=== PATIENT | female | born 1965 | race Hispanic/Latino ===

== ENCOUNTER 2018-03-29 03:48 | Inpatient (IN) | payer OTHER ==
[2018-03-29] MEDS ORDERED: Sodium Chloride 0.9% 1,000 ML IV STA (04:13)
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
[2018-03-29] MEDS ORDERED: Sodium Chloride 0.9% 1,000 ML IV SCH (04:30)
[2018-03-29] MEDS ORDERED: Iohexol 350 MG/100 ML VIAL ONE (05:11)
[2018-03-29 05:25] LABS: BASO # 0.02 K/mm3 (0.0-2.0); BASO % 0.4 % (0.0-3.0); EOS % 0.2 % (1.5-5.0); GRAN # 3.72 (1.4-6.5); GRAN % 71.9 % (50.0-68.0); HEMOGLOBIN 14.6 g/dL (12.0-16.0); LYMPH # 1.2 (1.2-3.4); LYMPH % 23.2 % (22.0-35.0); MEAN CELL VOLUME 87.6 fl (80.0-105.0); MEAN CORPUSCULAR HEMOGLOBIN 31.8 pg (25.0-35.0); MEAN CORPUSCULAR HGB CONC 36.3 g/dl (31.0-37.0); MEAN PLATELET VOLUME 10.5 fl (7.0-11.0); MONO # 0.2 (0.1-0.6); MONO % 4.3 % (1.0-6.0); RBC 4.59 10^6/uL (3.5-6.1); RED CELL DISTRIBUTION WIDTH 12.5 % (11.5-14.5); WHITE BLOOD COUNT 5.2 10^3/ul (4.5-11.0)
[2018-03-29 05:26] LABS: INR 0.97 (0.93-1.08); PARTIAL THROMBOPLASTIN TIME 28.2 Seconds (25.1-36.5); PROTHROMBIN TIME 11.1 SECONDS (9.4-12.5)
[2018-03-29 05:32] LABS: AST/SGOT 48 U/L (14-36)
[2018-03-29 05:37] LABS: ALB/GLOB RATIO 1.3 (1.1-1.8); ALBUMIN 4.3 g/dL (3.0-4.8); ALT/SGPT 54 U/L (7-56); AMYLASE 76 U/L (35-125); BLOOD UREA NITROGEN 13 mg/dL (7-21); CALCIUM 9.9 mg/dL (8.4-10.5); GFR AFRICAN-AMERICAN > 60; GFR NON-AFRICAN AMERICAN > 60; LIPASE 94 U/L (23-300)
[2018-03-29 05:45] LABS: TROPONIN I < 0.01 ng/mL
[2018-03-29] MEDS ORDERED: Morphine 2 mg/ml ISec IVP STA (06:10)
[2018-03-29 07:10] LABS: URINE BILIRUBIN NEGATIVE (NEGATIVE); URINE BLOOD NEGATIVE (NEGATIVE); URINE GLUCOSE (UA) NEGATIVE (NEGATIVE); URINE LEUKOCYTE ESTERASE NEGATIVE Leu/uL (NEGATIVE); URINE PROTEIN NEGATIVE mg/dL (<30 mg/dL); URINE UROBILINOGEN 0.2 E.U./dL (<1 E.U./dL)
[2018-03-29 07:22] LABS: URINE APPEARANCE CLEAR (CLEAR); URINE COLOR YELLOW (YELLOW)
--- NOTE | 2018-03-29 07:28 | CT ---
EXAM: CT Abdomen and Pelvis With Intravenous Contrast CLINICAL HISTORY: 53 years old, female; Pain; Abdominal pain; Additional info: Abd pain TECHNIQUE: Axial computed tomography images of the abdomen and pelvis with intravenous contrast. All CT scans at this facility use one or more dose reduction techniques, viz.: automated exposure control; ma/kV adjustment per patient size (including targeted exams where dose is matched to indication; i.e. head); or iterative reconstruction technique. Coronal and sagittal reformatted images were created and reviewed. CONTRAST: 96 mL of OMNI 350 administered intravenously. COMPARISON: CT - ABD PELVIS W/O PO OR IV CONT 2015-12-04 10:38 FINDINGS: Lung bases: Unremarkable. No mass. No consolidation. ABDOMEN: Liver: Unremarkable. No mass. Gallbladder and bile ducts: There has been a cholecystectomy. No ductal dilation. Pancreas: Unremarkable. No mass. No ductal dilation. Spleen: Unremarkable. No splenomegaly. Adrenals: 1.3 cm right adrenal nodule. The left adrenal gland is normal. Kidneys and ureters: Unremarkable. No solid mass. No hydronephrosis. Stomach and bowel: Mild diverticulosis is present in the sigmoid and descending colon. The sigmoid colon is mildly thickwalled which could be secondary to mild colitis the. No obstruction. PELVIS: Appendix: No appendix is specifically identified. There is no evidence of fluid collections or inflammatory stranding in the right lower quadrant. Bladder: Unremarkable. No mass. Reproductive: Unremarkable as visualized. ABDOMEN and PELVIS: Intraperitoneal space: Unremarkable. No free air. No significant fluid collection. Bones/joints: No acute fracture. No dislocation. Soft tissues: Unremarkable. Vasculature: Unremarkable. No abdominal aortic aneurysm. Lymph nodes: Unremarkable. No enlarged lymph nodes. IMPRESSION: Possible mild sigmoid colitis. Diverticulosis.
--- NOTE | 2018-03-29 07:30 | ED PDOC ---
Physical Exam Vital Signs Temp Pulse Resp BP Pulse Ox 03/29/18 07:35 98.4 F 94 H 18 127/88 100 03/29/18 07:09 85 17 154/84 H 100 03/29/18 04:02 99.8 F H 91 H 17 141/109 H 99 Medical Decision Making ED Course and Treatment: 03/29/18 07:00 Case signed out to me by Dr. Hinojosa. Patient is a 53 year old female, whose past medical history includes uterine fibroids, anemia, fibromyalgia, and depression, who presents to the Emergency department complaining of recurrent vomiting, associated with diarrhea and abdominal pain since 4 days. Currently pending abdominal CT scan. 03/29/18 07:30 CT abdominal and pelvis: Creator : CAROLYNE WHITLEY FINDINGS: Lung bases: Unremarkable. No mass. No consolidation. ABDOMEN: Liver: Unremarkable. No mass. Gallbladder and bile ducts: There has been a cholecystectomy. No ductal dilation. Pancreas: Unremarkable. No mass. No ductal dilation. Spleen: Unremarkable. No splenomegaly. Adrenals: 1.3 cm right adrenal nodule. The left adrenal gland is normal. Kidneys and ureters: Unremarkable. No solid mass. No hydronephrosis. Stomach and bowel: Mild diverticulosis is present in the sigmoid and descending colon. The sigmoid colon is mildly thickwalled which could be secondary to mild colitis the. No obstruction. PELVIS: Appendix: No appendix is specifically identified. There is no evidence of fluid collections or inflammatory stranding in the right lower quadrant. Bladder: Unremarkable. No mass. Reproductive: Unremarkable as visualized. ABDOMEN and PELVIS: Intraperitoneal space: Unremarkable. No free air. No significant fluid collection. Bones/joints: No acute fracture. No dislocation. Soft tissues: Unremarkable. Vasculature: Unremarkable. No abdominal aortic aneurysm. Lymph nodes: Unremarkable. No enlarged lymph nodes. IMPRESSION: Possible mild sigmoid colitis. Diverticulosis. 03/29/18 08:01 Zofran was ordered due to patient's nausea. 03/29/18 08:[address] Lindo, who is aware of plan and agrees for patient admission. 03/29/18 09:20 Patient reports feeling sore, but better. - Lab Interpretations Lab Results: 03/29/18 04:20 03/29/18 04:30 Lab Results 03/29/18 06:00: Urine Color Yellow, Urine Appearance Clear, Urine pH 6.0, Ur Specific [place] <= 1.005, Urine Protein Negative, Urine Glucose (UA) Negative, Urine Ketones Negative, Urine Blood Negative, Urine Nitrate Negative, Urine Bilirubin Negative, Urine Urobilinogen 0.2, Ur Leukocyte Esterase Negative 03/29/18 04:30: Sodium 147, Potassium 4.0, Chloride 107, Carbon Dioxide 28, Anion Gap 16, BUN 13, Creatinine 0.6 L, Est GFR ( Amer) > 60, Est GFR ( Non-Af Amer) > 60, Random Glucose 112 H, Calcium 9.9, Total Bilirubin 0.8, AST 48 H, ALT 54, Alkaline Phosphatase 53, Lactate Dehydrogenase 431, Total Creatine Kinase 24 L, Troponin I < 0.01, Total Protein 7.6, Albumin 4.3, Globulin 3.3, Albumin/Globulin Ratio 1.3, Amylase 76, Lipase 94 03/29/18 04:30: PT 11.1, INR 0.97, APTT 28.2 03/29/18 04:20: WBC 5.2 D, RBC 4.59, Hgb 14.6, Hct 40.2, MCV 87.6, MCH 31.8, MCHC 36.3, RDW 12.5, Plt Count 216, MPV 10.5, Gran % 71.9 H, Lymph % (Auto) 23.2 , [place] % (Auto) 4.3, Eos % (Auto) 0.2 L, Baso % (Auto) 0.4, Gran # 3.72, Lymph # (Auto) 1.2, [place] # (Auto) 0.2, Eos # (Auto) 0.0, Baso # (Auto) 0.02 - RAD Interpretation Radiology Orders: 03/29/18 04:51 ABD & PELVIS IV CONTRAST ONLY [CT] Stat Automated Weaver: Radiologist - Medication Orders Current Medication Orders: Sodium Chloride (Sodium Chloride 0.45%) 1,000 mls @ 125 mls/hr IV .Q8H YUMIKO Cefoxitin Sodium 1 gm/ Sodium (Chloride) 100 mls @ 100 mls/hr IV ONCE ONE PRN Reason: Protocol Stop: 03/29/18 09:53 Discontinued Medications Sodium Chloride (Sodium Chloride 0.9%) 1,000 mls @ 100 mls/hr IV .Q10H STA Stop: 03/29/18 14:12 Last Admin: 03/29/18 04:49 Dose: 100 mls/hr eMAR Start Stop Document 03/29/18 04:49 IT (Rec: 03/29/18 04:49 IT [facility] [id number]) Intravenous Solution Start Date 03/29/18 Start Time 04:49 Ketorolac Tromethamine (Toradol) 15 mg IVP ONCE ONE Stop: 03/29/18 06:12 Last Admin: 03/29/18 06:16 Dose: 15 mg MAR Pain Assessment Document 03/29/18 06:16 IT (Rec: 03/29/18 06:16 IT [facility] [id number]) Pain Reassessment Is this a pain reassessment? No Sleep Is patient sleeping during reassessment? No Presence of Pain Presence of Pain No Pain Scale Used Pain Scale Used Numeric IVP Administration Document 03/29/18 06:16 IT (Rec: 03/29/18 06:16 IT [facility] [id number]) Charges for Administration # of IVP Administrations 1 Ondansetron HCl (Zofran Inj) 4 mg IVP STAT STA Stop: 03/29/18 04:14 Last Admin: 03/29/18 04:50 Dose: 4 mg IVP Administration Document 03/29/18 04:50 IT (Rec: 03/29/18 04:50 IT [facility] [id number]) Charges for Administration # of IVP Administrations 1 Ondansetron HCl (Zofran Inj) 4 mg IVP STAT STA Stop: 03/29/18 08:02 Last Admin: 03/29/18 08:33 Dose: 4 mg IVP Administration Document 03/29/18 08:33 [email or web address] (Rec: 03/29/18 08:33 [email or web address] [id number]) Charges for Administration # of IVP Administrations 1 Pantoprazole Sodium (Protonix Inj) 40 mg IVP ONCE STA Stop: 03/29/18 04:18 Last Admin: 03/29/18 04:49 Dose: 40 mg IVP Administration Document 03/29/18 04:49 IT (Rec: 03/29/18 04:50 IT [facility] [id number]) Charges for Administration # of IVP Administrations 1 - Scribe Statement The provider has reviewed the documentation as recorded by the [place] Romero Provider Scribe Attestation: All medical record entries made by the Scribe were at my direction and personally dictated by me. I have reviewed the chart and agree that the record accurately reflects my personal performance of the history, physical exam, medical decision making, and the department course for this patient. I have also personally directed, reviewed, and agree with the discharge instructions and disposition. Disposition/Present on Arrival - Present on Arrival Any Indicators Present on Arrival: Yes History of DVT/PE: No History of Uncontrolled Diabetes: No Urinary Catheter: No History of Decub. Ulcer: No History Surgical Site Infection Following: None - Disposition Have Diagnosis and Disposition been Completed?: Yes Diagnosis: Gastroenteritis, Colitis Disposition: HOSPITALIZED Disposition Time: 14:00 Patient Plan: Admission Patient Problems: Current Active Problems Problem Status Onset Colitis Acute Gastroenteritis Acute Condition: GOOD
[2018-03-29] MEDS ORDERED: Ciprofloxacin 400mg/200ml D5W 400 MG/200 ML BAG IVPB STA (08:32)
[2018-03-29] MEDS ORDERED: metroNIDAZOLE IV 500 mg/100 ml 500 MG/100 ML BAG IVPB STA (08:34)
[2018-03-29] MEDS ORDERED: Sodium Chloride 0.45% 1,000 ML IV SCH (08:45)
[2018-03-29] MEDS ORDERED: cefOXitin 1 GM in Sodium Chloride 0.9% 100 ML IV ONE (08:54)
--- NOTE | 2018-03-29 11:31 | CARD ---
APPROVED REPORT EKG Measurement Heart [id number] <Conclusion> Normal sinus rhythm. Non Specific ST_T Changes. Normal ECG
[2018-03-29] MEDS ORDERED: Morphine 2 mg/ml ISec IM PRN (11:45)
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
[2018-03-29] MEDS: cefTRIAXone 1 gm 1 GM/100 ML BAG IVPB SCH (13:12)
[2018-03-29] MEDS: Sodium Chloride 0.45% 1,000 ML IV SCH (13:13)
[2018-03-29] MEDS ORDERED: Pneumococcal 23-Valent Vaccine IM ONE (13:58)
[2018-03-29] MEDS: metroNIDAZOLE IV 500 mg/100 ml 500 MG/100 ML BAG IVPB SCH ×2 (15:21→21:08)
[2018-03-30] MEDS: Sodium Chloride 0.45% 1,000 ML IV SCH ×4 (01:24→21:06)
[2018-03-30] MEDS: metroNIDAZOLE IV 500 mg/100 ml 500 MG/100 ML BAG IVPB SCH ×3 (05:30→21:08)
--- NOTE | 2018-03-30 07:00 | CP.PCM.PN ---
<Srathak Richard - Last Filed: 03/30/18 11:10> Subjective - Date & Time of Evaluation Date of Evaluation: 03/30/18 Time of Evaluation: 06:00 - Subjective Subjective: Patient seen and evaluated bedside. no acute issues overnight. Patient state she had diarrhea this morning, also complaining of nausea and abdominal pain. Denies chest pain, shortness of breath, fever, chills or other complaints. Objective - Vital Signs/Intake and Output Vital Signs (last 24 hours): Temp Pulse Resp BP Pulse Ox 98.2 F 50 L 16 139/74 100 03/29/18 23:12 03/29/18 23:12 03/29/18 23:12 03/29/18 23:12 03/29/18 23:12 - Medications Medications: Current Medications Clonazepam (Klonopin) 1 mg PO BID PRN PRN Reason: Anxiety Last Admin: 03/29/18 21:10 Dose: 1 mg Heparin Sodium (Porcine) (Heparin) 5,000 units SC Q8 [facility] PRN Reason: Protocol Last Admin: 03/30/18 05:29 Dose: 5,000 units Metronidazole (Flagyl) 500 mg in 100 mls @ 100 mls/hr IVPB Q8 [facility] PRN Reason: Protocol Last Admin: 03/30/18 05:30 Dose: 100 mls/hr Ceftriaxone Sodium (Rocephin 1 Gram Ivpb) 1 gm in 100 mls @ 100 mls/hr IVPB DAILY [facility] PRN Reason: Protocol Last Admin: 03/29/18 13:12 Dose: 100 mls/hr Sodium Chloride (Sodium Chloride 0.45%) 1,000 mls @ 100 mls/hr IV .Q10H [facility] Last Admin: 03/30/18 03:35 Dose: 100 mls/hr Ibuprofen (Motrin Tab) 400 mg PO Q6H PRN PRN Reason: Pain, moderate (4-7) Last Admin: 03/29/18 20:04 Dose: 400 mg Ketorolac Tromethamine (Toradol) 15 mg IVP Q4 PRN PRN Reason: Pain, severe (8-10) Last Admin: 03/30/18 06:17 Dose: 15 mg Nicotine (Nicoderm Cq) 1 patch TD DAILY [facility] Last Admin: 03/30/18 04:52 Dose: 1 patch Ondansetron HCl (Zofran Inj) 4 mg IVP Q6H PRN PRN Reason: Nausea/Vomiting Last Admin: 03/30/18 03:09 Dose: 4 mg Pantoprazole Sodium (Protonix Inj) 40 mg IVP DAILY [facility] - Labs Labs: PT 11.1 SECONDS (9.4-12.5) 03/29/18 04:30 INR 0.97 (0.93-1.08) 03/29/18 04:30 APTT 28.2 Seconds (25.1-36.5) 03/29/18 04:30 - Constitutional Appears: Non-toxic, No Acute Distress - Head Exam Head Exam: ATRAUMATIC, NORMAL INSPECTION, NORMOCEPHALIC - Eye Exam Eye Exam: Normal appearance - ENT Exam ENT Exam: Mucous Membranes Moist - Respiratory Exam Respiratory Exam: Clear to Ausculation Bilateral, NORMAL BREATHING PATTERN - Cardiovascular Exam Cardiovascular Exam: REGULAR RHYTHM, +S1, +S2 - GI/Abdominal Exam GI & Abdominal Exam: Soft, Tenderness - Neurological Exam Neurological Exam: Alert, Awake, Oriented x3 Assessment and Plan - Assessment and Plan (Free Text) Assessment: Anh Khoury, 53F, with active smoker with former methadone use, PMHx uterine fibroids with menorrhagia requiring blood transfusion, chronic pain/ sciatic/fibromyalgia on chronic oxycodone, and anxiety on klonopin TID, came in for abdominal pain, nausea, vomiting, diarrhea x [address] A/P showed mild sigmoid colitis with diverticulosis. Plan: Abdominal pain, generalized Intractable Nausea and vomiting Diarrhea Likely mild sigmoid colitis vs opioid withdrawal - full liquid diet - Toradol PRN; avoid opioid - 1/2 NS@100 - Zofran PRN - protonix IV - Ceftriaxone and flagyl - GI consulted, follow recs - blood culture pending - stool cultures and c diff pending Active smoker - nicoderm - counselled on smoking cessation Hx methadone use - UDS positive for opiates PVX - protonix, heparin SC <Jakob Guerrero - Last Filed: 03/30/18 12:21> Objective - Vital Signs/Intake and Output Vital Signs (last 24 hours): Temp Pulse Resp BP Pulse Ox 98.6 F 64 20 132/77 99 03/30/18 08:28 03/30/18 08:28 03/30/18 08:28 03/30/18 08:28 03/30/18 08:28 - Medications Medications: Current Medications Clonazepam (Klonopin) 1 mg PO BID PRN PRN Reason: Anxiety Last Admin: 03/30/18 09:29 Dose: 1 mg Heparin Sodium (Porcine) (Heparin) 5,000 units SC Q8 [facility] PRN Reason: Protocol Last Admin: 03/30/18 05:29 Dose: 5,000 units Metronidazole (Flagyl) 500 mg in 100 mls @ 100 mls/hr IVPB Q8 [facility] PRN Reason: Protocol Last Admin: 03/30/18 05:30 Dose: 100 mls/hr Ceftriaxone Sodium (Rocephin 1 Gram Ivpb) 1 gm in 100 mls @ 100 mls/hr IVPB DAILY [facility] PRN Reason: Protocol Last Admin: 03/30/18 09:28 Dose: 100 mls/hr Sodium Chloride (Sodium Chloride 0.45%) 1,000 mls @ 100 mls/hr IV .Q10H [facility] Last Admin: 03/30/18 09:31 Dose: 100 mls/hr Ibuprofen (Motrin Tab) 400 mg PO Q6H PRN PRN Reason: Pain, moderate (4-7) Last Admin: 03/29/18 20:04 Dose: 400 mg Ketorolac Tromethamine (Toradol) 15 mg IVP Q4 PRN PRN Reason: Pain, severe (8-10) Last Admin: 03/30/18 10:17 Dose: 15 mg Nicotine (Nicoderm Cq) 1 patch TD DAILY [facility] Last Admin: 03/30/18 09:30 Dose: Not Given Ondansetron HCl (Zofran Inj) 4 mg IVP Q4H PRN PRN Reason: Nausea/Vomiting Pantoprazole Sodium (Protonix Inj) 40 mg IVP DAILY [facility] Last Admin: 03/30/18 09:30 Dose: 40 mg - Labs Labs: 03/30/18 06:45 03/30/18 06:45 PT 11.1 SECONDS (9.4-12.5) 03/29/18 04:30 INR 0.97 (0.93-1.08) 03/29/18 04:30 APTT 28.2 Seconds (25.1-36.5) 03/29/18 04:30 Attending/Attestation - Attestation I have personally seen and examined this patient.: Yes I have fully participated in the care of the patient.: Yes I have reviewed all pertinent clinical information, including history, physical exam and plan: Yes Notes (Text): 03/30/18 12:18 53 year old female with past medical history of chronic pain on opiates, fibromyalgia and anxiety who presented with intractable nausea, vomiting, diarrhea and abdominal pain. CT abd/pelvis showed mild sigmoid colitis with diverticulosis. She was started on iv fluids, analgesics and antibiotics. GI evaluation was appreciated. Today she still complains of loose stools and nausea/vomiting, unable to tolerate po. Will scale diet back to liquids or NPO for now. GI follow up requested. Stool studies still pending. She was counselled on smoking cessation. Jakob Guerrero MD Hospitalist.
[2018-03-30 07:21] LABS: BASO # 0.02 K/mm3 (0.0-2.0); BASO % 0.4 % (0.0-3.0); GRAN # 2.67 (1.4-6.5); GRAN % 57.7 % (50.0-68.0); LYMPH # 1.6 (1.2-3.4); LYMPH % 35.4 % (22.0-35.0); MEAN CELL VOLUME 88.3 fl (80.0-105.0); MEAN CORPUSCULAR HEMOGLOBIN 31.1 pg (25.0-35.0); MEAN CORPUSCULAR HGB CONC 35.3 g/dl (31.0-37.0); MEAN PLATELET VOLUME 10.3 fl (7.0-11.0); MONO # 0.3 (0.1-0.6); MONO % 6.5 % (1.0-6.0); RBC 3.92 10^6/uL (3.5-6.1); RED CELL DISTRIBUTION WIDTH 12.6 % (11.5-14.5); WHITE BLOOD COUNT 4.6 10^3/ul (4.5-11.0)
[2018-03-30 07:23] LABS: HEMOGLOBIN 12.2 g/dL (12.0-16.0)
[2018-03-30 07:41] LABS: ALB/GLOB RATIO 1.3 (1.1-1.8); ALBUMIN 3.5 g/dL (3.0-4.8); ALT/SGPT 56 U/L (7-56); AST/SGOT 60 U/L (14-36); BLOOD UREA NITROGEN 13 mg/dL (7-21); CALCIUM 8.9 mg/dL (8.4-10.5); GFR AFRICAN-AMERICAN > 60; GFR NON-AFRICAN AMERICAN > 60
[2018-03-30 09:19] LABS: BARBITURATES, UR NEGATIVE (NEGATIVE); BENZODIAZEPINES, UR NEGATIVE (NEGATIVE); OPIATES, UR POSITIVE (NEGATIVE); PHENCYCLIDINE, UR NEGATIVE (NEGATIVE)
[2018-03-30] MEDS: cefTRIAXone 1 gm 1 GM/100 ML BAG IVPB SCH (09:28)
--- NOTE | 2018-03-30 11:48 | CP.PCM.PN ---
<Gissell Barnes - Last Filed: 03/31/18 07:24> Subjective - Date & Time of Evaluation Date of Evaluation: 03/30/18 Time of Evaluation: 10:30 - Subjective Subjective: PGY- [address] Ingram's service Patient seen and examined at bedside. No acute issues overnight. Patient state she had multiple episodes of vomiting. She also reports 1 episode of diarrhea this morning. She continue to reports abd pain. Denies chest pain, shortness of breath, fever, chills or other complaints. Objective - Vital Signs/Intake and Output Vital Signs (last 24 hours): Temp Pulse Resp BP Pulse Ox 98.6 F 64 20 132/77 99 03/30/18 08:28 03/30/18 08:28 03/30/18 08:28 03/30/18 08:28 03/30/18 08:28 - Medications Medications: Current Medications Clonazepam (Klonopin) 1 mg PO BID PRN PRN Reason: Anxiety Last Admin: 03/30/18 09:29 Dose: 1 mg Heparin Sodium (Porcine) (Heparin) 5,000 units SC Q8 [facility] PRN Reason: Protocol Last Admin: 03/30/18 05:29 Dose: 5,000 units Metronidazole (Flagyl) 500 mg in 100 mls @ 100 mls/hr IVPB Q8 [facility] PRN Reason: Protocol Last Admin: 03/30/18 05:30 Dose: 100 mls/hr Ceftriaxone Sodium (Rocephin 1 Gram Ivpb) 1 gm in 100 mls @ 100 mls/hr IVPB DAILY [facility] PRN Reason: Protocol Last Admin: 03/30/18 09:28 Dose: 100 mls/hr Sodium Chloride (Sodium Chloride 0.45%) 1,000 mls @ 100 mls/hr IV .Q10H [facility] Last Admin: 03/30/18 09:31 Dose: 100 mls/hr Ibuprofen (Motrin Tab) 400 mg PO Q6H PRN PRN Reason: Pain, moderate (4-7) Last Admin: 03/29/18 20:04 Dose: 400 mg Ketorolac Tromethamine (Toradol) 15 mg IVP Q4 PRN PRN Reason: Pain, severe (8-10) Last Admin: 03/30/18 10:17 Dose: 15 mg Nicotine (Nicoderm Cq) 1 patch TD DAILY [facility] Last Admin: 03/30/18 09:30 Dose: Not Given Ondansetron HCl (Zofran Inj) 4 mg IVP Q6H PRN PRN Reason: Nausea/Vomiting Last Admin: 03/30/18 09:29 Dose: 4 mg Pantoprazole Sodium (Protonix Inj) 40 mg IVP DAILY [facility] Last Admin: 03/30/18 09:30 Dose: 40 mg - Labs Labs: 03/30/18 06:45 03/30/18 06:45 PT 11.1 SECONDS (9.4-12.5) 03/29/18 04:30 INR 0.97 (0.93-1.08) 03/29/18 04:30 APTT 28.2 Seconds (25.1-36.5) 03/29/18 04:30 - Constitutional Appears: No Acute Distress - Head Exam Head Exam: ATRAUMATIC, NORMOCEPHALIC - Eye Exam Eye Exam: EOMI, Normal appearance - ENT Exam ENT Exam: Mucous Membranes Moist - Respiratory Exam Respiratory Exam: Clear to Ausculation Bilateral, NORMAL BREATHING PATTERN. absent: Decreased Breath Sounds, Rales, Rhonchi, Wheezes, Respiratory Distress, Stridor - Cardiovascular Exam Cardiovascular Exam: REGULAR RHYTHM, +S1, +S2. absent: Bradycardia, Tachycardia , Murmur - GI/Abdominal Exam GI & Abdominal Exam: Soft, Tenderness, Normal Bowel Sounds. absent: Distended, Firm, Guarding - Extremities Exam Extremities Exam: Normal Inspection. absent: Pedal Edema, Tenderness - Neurological Exam Neurological Exam: Alert, Awake, Oriented x3 - Skin Skin Exam: Dry, Intact, Normal Color, Warm Assessment and Plan - Assessment and Plan (Free Text) Assessment: 53 year old female, whose past medical history includes uterine fibroids, anemia , fibromyalgia, diverticulosis and depression, who presents to the Emergency department complaining of recurrent vomiting possible due to gastroentritis Plan: - CT abd/pelvis showed possible mild sigmoid colitis, diverticulosis - continue antibiotics - stool cultures - c diff pending - patient is currently NPO due to n/v, consider CLD for dinner if patient is tolerating, advance diet to low residue, soft diet tomorrow - zofran prn for nausea case seen and discussed with Dr. Ingram <Gregory Ingram V - Last Filed: 04/01/18 00:01> Objective - Vital Signs/Intake and Output Vital Signs (last 24 hours): Temp Pulse Resp BP Pulse Ox 98.3 F 43 L 20 122/68 99 03/31/18 22:00 03/31/18 22:00 03/31/18 22:00 03/31/18 22:00 03/31/18 22:00 Intake and Output: 03/31/18 04/01/18 18:59 06:59 Intake Total 600 560 Output Total 5 Balance 600 555 - Medications Medications: Current Medications Acetaminophen (Tylenol 325mg Tab) 650 mg PO Q4H PRN PRN Reason: Fever >100.4 F Last Admin: 03/31/18 14:35 Dose: 650 mg Clonazepam (Klonopin) 1 mg PO TID PRN PRN Reason: Anxiety Last Admin: 03/31/18 21:17 Dose: 1 mg Diphenhydramine HCl (Benadryl) 12.5 mg PO HS PRN PRN Reason: Insomnia Last Admin: 03/31/18 00:15 Dose: 12.5 mg Heparin Sodium (Porcine) (Heparin) 5,000 units SC Q8 [facility] PRN Reason: Protocol Last Admin: 03/31/18 21:19 Dose: 5,000 units Metronidazole (Flagyl) 500 mg in 100 mls @ 100 mls/hr IVPB Q8 [facility] PRN Reason: Protocol Last Admin: 03/31/18 21:20 Dose: 100 mls/hr Ceftriaxone Sodium (Rocephin 1 Gram Ivpb) 1 gm in 100 mls @ 100 mls/hr IVPB DAILY [facility] PRN Reason: Protocol Last Admin: 03/31/18 15:57 Dose: 100 mls/hr Sodium Chloride (Sodium Chloride 0.9%) 1,000 mls @ 100 mls/hr IV .Q10H [facility] Last Admin: 03/31/18 18:55 Dose: 100 mls/hr Ibuprofen (Motrin Tab) 400 mg PO Q6H PRN PRN Reason: Pain, moderate (4-7) Last Admin: 03/31/18 05:30 Dose: 400 mg Ketorolac Tromethamine (Toradol) 15 mg IVP Q4 PRN PRN Reason: Pain, severe (8-10) Last Admin: 03/31/18 21:29 Dose: 15 mg Metoclopramide HCl (Reglan) 5 mg IVP ACHS [facility] Last Admin: 03/31/18 21:18 Dose: 5 mg Nicotine (Nicoderm Cq) 1 patch TD DAILY [facility] Last Admin: 03/31/18 09:46 Dose: 1 patch Pantoprazole Sodium (Protonix Inj) 40 mg IVP DAILY [facility] Last Admin: 03/31/18 09:47 Dose: 40 mg - Labs Labs: 03/31/18 14:30 03/31/18 14:30 PT 11.1 SECONDS (9.4-12.5) 03/29/18 04:30 INR 0.97 (0.93-1.08) 03/29/18 04:30 APTT 28.2 Seconds (25.1-36.5) 03/29/18 04:30 Attending/Attestation - Attestation I have personally seen and examined this patient.: Yes I have fully participated in the care of the patient.: Yes I have reviewed all pertinent clinical information, including history, physical exam and plan: Yes Notes (Text): This is an addendum to GI progress report dictated by the Bar Turner.The patient was seen and examined earlier. Medical records, lab studies, imagings were reviewed. Last 24 hours events reviewed. Agreed with the above treatment plan as outlined in Bar Turner 's notes the with the addition of the following 04/01/18 00:01
[2018-03-30] MEDS ORDERED: DiphenhydrAMINE 12.5 mg/5 ml LIQ UD (5 ml) PO PRN (23:27)
[2018-03-31] MEDS: metroNIDAZOLE IV 500 mg/100 ml 500 MG/100 ML BAG IVPB SCH ×3 (05:29→21:20)
[2018-03-31 06:56] LABS: BASO # 0.01 K/mm3 (0.0-2.0); BASO % 0.2 % (0.0-3.0); GRAN # 3.99 (1.4-6.5); GRAN % 60.8 % (50.0-68.0); HEMOGLOBIN 12.5 g/dL (12.0-16.0); LYMPH # 1.9 (1.2-3.4); LYMPH % 28.5 % (22.0-35.0); MEAN CELL VOLUME 87.6 fl (80.0-105.0); MEAN CORPUSCULAR HEMOGLOBIN 30.9 pg (25.0-35.0); MEAN CORPUSCULAR HGB CONC 35.3 g/dl (31.0-37.0); MEAN PLATELET VOLUME 10.6 fl (7.0-11.0); MONO # 0.7 (0.1-0.6); MONO % 10.5 % (1.0-6.0); RBC 4.04 10^6/uL (3.5-6.1); RED CELL DISTRIBUTION WIDTH 12.6 % (11.5-14.5); WHITE BLOOD COUNT 6.6 10^3/ul (4.5-11.0)
[2018-03-31 07:10] LABS: ALB/GLOB RATIO 1.3 (1.1-1.8); ALBUMIN 3.6 g/dL (3.0-4.8); ALT/SGPT 62 U/L (7-56); AST/SGOT 55 U/L (14-36); BLOOD UREA NITROGEN 13 mg/dL (7-21); CALCIUM 9.1 mg/dL (8.4-10.5); GFR AFRICAN-AMERICAN > 60; GFR NON-AFRICAN AMERICAN > 60
--- NOTE | 2018-03-31 09:10 | CP.PCM.PN ---
<Sarthak Richard - Last Filed: 03/31/18 14:14> Subjective - Date & Time of Evaluation Date of Evaluation: 03/31/18 Time of Evaluation: 06:00 - Subjective Subjective: Patient seen and evaluated bedside. No acute issues overnight. patient states she still had diarrhea and also was not able to keep down the diet from yesterday. Says she is nauseas, no vomiting. Denies chest pain, shortness of breath, fever, chills, or any other complaints. Objective - Vital Signs/Intake and Output Vital Signs (last 24 hours): Temp Pulse Resp BP Pulse Ox 98 F 57 L 20 157/78 H 100 03/31/18 07:53 03/31/18 07:53 03/31/18 07:53 03/31/18 07:53 03/31/18 07:53 Intake and Output: 03/31/18 03/31/18 06:59 18:59 Intake Total 0 Balance 0 - Medications Medications: Current Medications Clonazepam (Klonopin) 1 mg PO TID [facility] Diphenhydramine HCl (Benadryl) 12.5 mg PO HS PRN PRN Reason: Insomnia Last Admin: 03/31/18 00:15 Dose: 12.5 mg Heparin Sodium (Porcine) (Heparin) 5,000 units SC Q8 [facility] PRN Reason: Protocol Last Admin: 03/31/18 05:28 Dose: 5,000 units Metronidazole (Flagyl) 500 mg in 100 mls @ 100 mls/hr IVPB Q8 [facility] PRN Reason: Protocol Last Admin: 03/31/18 05:29 Dose: 100 mls/hr Ceftriaxone Sodium (Rocephin 1 Gram Ivpb) 1 gm in 100 mls @ 100 mls/hr IVPB DAILY [facility] PRN Reason: Protocol Last Admin: 03/30/18 09:28 Dose: 100 mls/hr Sodium Chloride (Sodium Chloride 0.45%) 1,000 mls @ 100 mls/hr IV .Q10H [facility] Last Admin: 03/30/18 21:06 Dose: 100 mls/hr Ibuprofen (Motrin Tab) 400 mg PO Q6H PRN PRN Reason: Pain, moderate (4-7) Last Admin: 03/31/18 05:30 Dose: 400 mg Ketorolac Tromethamine (Toradol) 15 mg IVP Q4 PRN PRN Reason: Pain, severe (8-10) Last Admin: 03/31/18 05:28 Dose: 15 mg Metoclopramide HCl (Reglan) 5 mg IVP ACHS [facility] Last Admin: 03/31/18 08:06 Dose: 5 mg Nicotine (Nicoderm Cq) 1 patch TD DAILY [facility] Last Admin: 03/30/18 09:30 Dose: Not Given Ondansetron HCl (Zofran Inj) 4 mg IVP Q4H PRN PRN Reason: Nausea/Vomiting Last Admin: 03/31/18 03:36 Dose: 4 mg Pantoprazole Sodium (Protonix Inj) 40 mg IVP DAILY [facility] Last Admin: 03/30/18 09:30 Dose: 40 mg - Labs Labs: 03/31/18 06:30 03/31/18 06:30 PT 11.1 SECONDS (9.4-12.5) 03/29/18 04:30 INR 0.97 (0.93-1.08) 03/29/18 04:30 APTT 28.2 Seconds (25.1-36.5) 03/29/18 04:30 - Constitutional Appears: Non-toxic, No Acute Distress - Head Exam Head Exam: ATRAUMATIC, NORMAL INSPECTION, NORMOCEPHALIC - Eye Exam Eye Exam: Normal appearance - ENT Exam ENT Exam: Mucous Membranes Moist - Respiratory Exam Respiratory Exam: Clear to Ausculation Bilateral, NORMAL BREATHING PATTERN - Cardiovascular Exam Cardiovascular Exam: REGULAR RHYTHM, +S1, +S2 - GI/Abdominal Exam GI & Abdominal Exam: Soft, Tenderness - Neurological Exam Neurological Exam: Alert, Awake, Oriented x3 Assessment and Plan - Assessment and Plan (Free Text) Assessment: Anh Khoury, 53F, with active smoker with former methadone use, PMHx uterine fibroids with menorrhagia requiring blood transfusion, chronic pain/ sciatic/fibromyalgia on chronic oxycodone, and anxiety on klonopin TID, came in for abdominal pain, nausea, vomiting, diarrhea x [address] A/P showed mild sigmoid colitis with diverticulosis. Plan: Abdominal pain, generalized Intractable Nausea and vomiting Diarrhea Likely mild sigmoid colitis vs opioid withdrawal - full liquid diet - Toradol PRN; avoid opioid use - 1/2 NS@100 - Zofran PRN - protonix IV - Ceftriaxone and flagyl - GI consulted, follow recs, will need outpatient colonoscopy - blood culture pending - stool cultures and c diff pending Active smoker - nicoderm - counselled on smoking cessation Hx methadone use - UDS positive for opiates Fever -tmax: 101 -sepsis workup pending PVX - protonix, heparin SC <Jakob Guerrero - Last Filed: 03/31/18 15:40> Objective - Vital Signs/Intake and Output Vital Signs (last 24 hours): Temp Pulse Resp BP Pulse Ox 101.2 F H 45 L 18 135/67 99 03/31/18 14:53 03/31/18 14:53 03/31/18 14:53 03/31/18 14:53 03/31/18 14:53 Intake and Output: 03/31/18 03/31/18 06:59 18:59 Intake Total 0 600 Balance 0 600 - Medications Medications: Current Medications Acetaminophen (Tylenol 325mg Tab) 650 mg PO Q4H PRN PRN Reason: Fever >100.4 F Last Admin: 03/31/18 14:35 Dose: 650 mg Clonazepam (Klonopin) 1 mg PO TID PRN PRN Reason: Anxiety Last Admin: 03/31/18 15:14 Dose: 1 mg Diphenhydramine HCl (Benadryl) 12.5 mg PO HS PRN PRN Reason: Insomnia Last Admin: 03/31/18 00:15 Dose: 12.5 mg Heparin Sodium (Porcine) (Heparin) 5,000 units SC Q8 [facility] PRN Reason: Protocol Last Admin: 03/31/18 14:21 Dose: 5,000 units Metronidazole (Flagyl) 500 mg in 100 mls @ 100 mls/hr IVPB Q8 [facility] PRN Reason: Protocol Ceftriaxone Sodium (Rocephin 1 Gram Ivpb) 1 gm in 100 mls @ 100 mls/hr IVPB DAILY [facility] PRN Reason: Protocol Sodium Chloride (Sodium Chloride 0.9%) 1,000 mls @ 999 mls/hr IV .Q1H1M [facility] Stop: 03/31/18 16:33 Ibuprofen (Motrin Tab) 400 mg PO Q6H PRN PRN Reason: Pain, moderate (4-7) Last Admin: 03/31/18 05:30 Dose: 400 mg Ketorolac Tromethamine (Toradol) 15 mg IVP Q4 PRN PRN Reason: Pain, severe (8-10) Last Admin: 03/31/18 14:21 Dose: 15 mg Metoclopramide HCl (Reglan) 5 mg IVP ACHS [facility] Last Admin: 03/31/18 11:37 Dose: 5 mg Nicotine (Nicoderm Cq) 1 patch TD DAILY [facility] Last Admin: 03/31/18 09:46 Dose: 1 patch Pantoprazole Sodium (Protonix Inj) 40 mg IVP DAILY [facility] Last Admin: 03/31/18 09:47 Dose: 40 mg - Labs Labs: 03/31/18 14:30 03/31/18 14:30 PT 11.1 SECONDS (9.4-12.5) 03/29/18 04:30 INR 0.97 (0.93-1.08) 03/29/18 04:30 APTT 28.2 Seconds (25.1-36.5) 03/29/18 04:30 Attending/Attestation - Attestation I have personally seen and examined this patient.: Yes I have fully participated in the care of the patient.: Yes I have reviewed all pertinent clinical information, including history, physical exam and plan: Yes Notes (Text): 03/31/18 15:39 53 year old female with past medical history of chronic pain on opiates, fibromyalgia and anxiety who presented with intractable nausea, vomiting, diarrhea and abdominal pain. CT abd/pelvis showed mild sigmoid colitis with diverticulosis. She was started on iv fluids, analgesics and antibiotics. Her GI symptoms including n/v and diarrhea are improving and her diet is advanced. GI is also following. Today she is noted to have fever 101.2. Will check septic workup including CXR , UA/UCx, BCx. She was counselled on smoking cessation. Jakob Guerrero MD Hospitalist.
[2018-03-31] MEDS: cefTRIAXone 1 gm 1 GM/100 ML BAG IVPB SCH (09:46)
--- NOTE | 2018-03-31 11:05 | CP.PCM.PN ---
<Gissell Barnes - Last Filed: 03/31/18 15:43> Subjective - Date & Time of Evaluation Date of Evaluation: 03/31/18 Time of Evaluation: 09:00 - Subjective Subjective: PGY- [address] Ingram's service Patient seen and examined at bedside. No acute issues overnight. Patient state her nausea and vomiting have improved with medication. She continue to reports abd pain. Objective - Vital Signs/Intake and Output Vital Signs (last 24 hours): Temp Pulse Resp BP Pulse Ox 98 F 57 L 20 157/78 H 100 03/31/18 07:53 03/31/18 07:53 03/31/18 07:53 03/31/18 07:53 03/31/18 07:53 Intake and Output: 03/31/18 03/31/18 06:59 18:59 Intake Total 0 Balance 0 - Medications Medications: Current Medications Clonazepam (Klonopin) 1 mg PO TID PRN PRN Reason: Anxiety Diphenhydramine HCl (Benadryl) 12.5 mg PO HS PRN PRN Reason: Insomnia Last Admin: 03/31/18 00:15 Dose: 12.5 mg Heparin Sodium (Porcine) (Heparin) 5,000 units SC Q8 YUMIKO PRN Reason: Protocol Last Admin: 03/31/18 05:28 Dose: 5,000 units Sodium Chloride (Sodium Chloride 0.45%) 1,000 mls @ 100 mls/hr IV .Q10H [facility] Last Admin: 03/30/18 21:06 Dose: 100 mls/hr Ibuprofen (Motrin Tab) 400 mg PO Q6H PRN PRN Reason: Pain, moderate (4-7) Last Admin: 03/31/18 05:30 Dose: 400 mg Ketorolac Tromethamine (Toradol) 15 mg IVP Q4 PRN PRN Reason: Pain, severe (8-10) Last Admin: 03/31/18 09:47 Dose: 15 mg Metoclopramide HCl (Reglan) 5 mg IVP ACHS [facility] Last Admin: 03/31/18 08:06 Dose: 5 mg Nicotine (Nicoderm Cq) 1 patch TD DAILY [facility] Last Admin: 03/31/18 09:46 Dose: 1 patch Ondansetron HCl (Zofran Inj) 4 mg IVP Q4H PRN PRN Reason: Nausea/Vomiting Last Admin: 03/31/18 03:36 Dose: 4 mg Pantoprazole Sodium (Protonix Inj) 40 mg IVP DAILY Y[facility]IKO Last Admin: 03/31/18 09:47 Dose: 40 mg - Labs Labs: 03/31/18 06:30 03/31/18 06:30 PT 11.1 SECONDS (9.4-12.5) 03/29/18 04:30 INR 0.97 (0.93-1.08) 03/29/18 04:30 APTT 28.2 Seconds (25.1-36.5) 03/29/18 04:30 - Constitutional Appears: No Acute Distress - Head Exam Head Exam: ATRAUMATIC, NORMAL INSPECTION, NORMOCEPHALIC - Eye Exam Eye Exam: EOMI, Normal appearance - ENT Exam ENT Exam: Mucous Membranes Moist - Respiratory Exam Respiratory Exam: NORMAL BREATHING PATTERN. absent: Respiratory Distress - GI/Abdominal Exam GI & Abdominal Exam: Soft, Tenderness. absent: Distended, Firm, Guarding - Extremities Exam Extremities Exam: Normal Inspection - Neurological Exam Neurological Exam: Alert, Awake, Oriented x3 - Skin Skin Exam: Dry, Intact, Normal Color, Warm Assessment and Plan - Assessment and Plan (Free Text) Assessment: 53 year old female, whose past medical history includes uterine fibroids, anemia , fibromyalgia, diverticulosis and depression, who presents to the Emergency department complaining of recurrent vomiting possible due to gastroentritis Plan: - CT abd/pelvis showed possible mild sigmoid colitis, diverticulosis - continue antibiotics - continue reglan - stool cultures - c diff pending - patient is currently on CLD if patient is tolerating, advance diet to low residue, soft diet - zofran prn for nausea - patient will need outpatient endoscopy case seen and discussed with Dr. Ingram <Gregory Ingram V - Last Filed: 03/31/18 23:46> Objective - Vital Signs/Intake and Output Vital Signs (last 24 hours): Temp Pulse Resp BP Pulse Ox 98.3 F 43 L 20 122/68 99 03/31/18 22:00 03/31/18 22:00 03/31/18 22:00 03/31/18 22:00 03/31/18 22:00 Intake and Output: 03/31/18 04/01/18 18:59 06:59 Intake Total 600 560 Output Total 5 Balance 600 555 - Medications Medications: Current Medications Acetaminophen (Tylenol 325mg Tab) 650 mg PO Q4H PRN PRN Reason: Fever >100.4 F Last Admin: 03/31/18 14:35 Dose: 650 mg Clonazepam (Klonopin) 1 mg PO TID PRN PRN Reason: Anxiety Last Admin: 03/31/18 21:17 Dose: 1 mg Diphenhydramine HCl (Benadryl) 12.5 mg PO HS PRN PRN Reason: Insomnia Last Admin: 03/31/18 00:15 Dose: 12.5 mg Heparin Sodium (Porcine) (Heparin) 5,000 units SC Q8 YUMIKO PRN Reason: Protocol Last Admin: 03/31/18 21:19 Dose: 5,000 units Metronidazole (Flagyl) 500 mg in 100 mls @ 100 mls/hr IVPB Q8 YUMIKO PRN Reason: Protocol Last Admin: 03/31/18 21:20 Dose: 100 mls/hr Ceftriaxone Sodium (Rocephin 1 Gram Ivpb) 1 gm in 100 mls @ 100 mls/hr IVPB DAILY [facility] PRN Reason: Protocol Last Admin: 03/31/18 15:57 Dose: 100 mls/hr Sodium Chloride (Sodium Chloride 0.9%) 1,000 mls @ 100 mls/hr IV .Q10H [facility] Last Admin: 03/31/18 18:55 Dose: 100 mls/hr Ibuprofen (Motrin Tab) 400 mg PO Q6H PRN PRN Reason: Pain, moderate (4-7) Last Admin: 03/31/18 05:30 Dose: 400 mg Ketorolac Tromethamine (Toradol) 15 mg IVP Q4 PRN PRN Reason: Pain, severe (8-10) Last Admin: 03/31/18 21:29 Dose: 15 mg Metoclopramide HCl (Reglan) 5 mg IVP ACHS [facility] Last Admin: 03/31/18 21:18 Dose: 5 mg Nicotine (Nicoderm Cq) 1 patch TD DAILY [facility] Last Admin: 03/31/18 09:46 Dose: 1 patch Pantoprazole Sodium (Protonix Inj) 40 mg IVP DAILY [facility] Last Admin: 03/31/18 09:47 Dose: 40 mg - Labs Labs: 03/31/18 14:30 03/31/18 14:30 PT 11.1 SECONDS (9.4-12.5) 03/29/18 04:30 INR 0.97 (0.93-1.08) 03/29/18 04:30 APTT 28.2 Seconds (25.1-36.5) 03/29/18 04:30 Attending/Attestation - Attestation I have personally seen and examined this patient.: Yes I have fully participated in the care of the patient.: Yes I have reviewed all pertinent clinical information, including history, physical exam and plan: Yes Notes (Text): This is an addendum to GI progress report dictated by the Research Chief Engineer.The patient was seen and examined earlier. Medical records, lab studies, imagings were reviewed. Last 24 hours events reviewed. Agreed with the above treatment plan as outlined in Research Chief Engineer 's notes the with the addition of the following 03/31/18 23:46
[2018-03-31 14:41] LABS: BASO # 0.01 K/mm3 (0.0-2.0); BASO % 0.2 % (0.0-3.0); EOS % 0.2 % (1.5-5.0); GRAN # 3.61 (1.4-6.5); GRAN % 59.5 % (50.0-68.0); HEMOGLOBIN 12.7 g/dL (12.0-16.0); LYMPH # 1.9 (1.2-3.4); MEAN CELL VOLUME 87.5 fl (80.0-105.0); MEAN CORPUSCULAR HEMOGLOBIN 31.8 pg (25.0-35.0); MEAN CORPUSCULAR HGB CONC 36.3 g/dl (31.0-37.0); MEAN PLATELET VOLUME 10.5 fl (7.0-11.0); MONO # 0.5 (0.1-0.6); MONO % 8.1 % (1.0-6.0); RED CELL DISTRIBUTION WIDTH 12.5 % (11.5-14.5); WHITE BLOOD COUNT 6.1 10^3/ul (4.5-11.0)
[2018-03-31 14:44] LABS: VENOUS BLOOD GAS BASE EXCESS 0.4 mmol/L (0.0-2.0); VENOUS BLOOD GAS PO2 137 mm/Hg (30-55); VENOUS BLOOD PH 7.48 (7.32-7.43)
[2018-03-31 14:51] LABS: ALB/GLOB RATIO 1.5 (1.1-1.8); ALBUMIN 3.9 g/dL (3.0-4.8); ALT/SGPT 63 U/L (7-56); AST/SGOT 52 U/L (14-36); BLOOD UREA NITROGEN 10 mg/dL (7-21); GFR AFRICAN-AMERICAN > 60; GFR NON-AFRICAN AMERICAN > 60
[2018-03-31 14:54] VITALS: O2SAT 99
[2018-03-31] MEDS: Sodium Chloride 0.45% 1,000 ML IV SCH (15:14)
[2018-03-31] MEDS ORDERED: cefTRIAXone 1 gm 1 GM/100 ML BAG IVPB SCH (15:30)
[2018-03-31] MEDS ORDERED: Sodium Chloride 0.9% 1,000 ML IV STA (15:33)
[2018-03-31] MEDS ORDERED: Potassium Chloride 40 mEq/30 ml LIQ UD PO ONE (15:41)
[2018-03-31] MEDS ORDERED: Sodium Chloride 0.9% 500 ML IV STA (15:42)
[2018-03-31] MEDS ORDERED: Sodium Chloride 0.9% 1,000 ML IV SCH ×2 (15:45→17:00)
[2018-03-31] MEDS ORDERED: Sodium Chloride 0.9% 500 ML IV SCH (16:15)
[2018-03-31 19:53] LABS: VENOUS BLOOD GAS BASE EXCESS 0.8 mmol/L (0.0-2.0); VENOUS BLOOD GAS PO2 25 mm/Hg (30-55); VENOUS BLOOD PH 7.39 (7.32-7.43)
[2018-03-31 22:17] VITALS: RESP 20
--- NOTE | 2018-03-31 22:51 | PCM.SEPTIC ---
<KyleAshley - Last Filed: 03/31/18 22:46> Sepsis Progress Note - Reassessment Type Date of Evaluation: 03/31/18 Time of Evaluation: 22:46 Reassessment Type: Non-invasive reassessment - Non Invasive Reassessment Were the most recent vital sign reviewed: Yes Vital Sign (Latest): Temp Pulse Resp BP Pulse Ox 98.3 F 43 L 20 122/68 99 03/31/18 22:00 03/31/18 22:00 03/31/18 22:00 03/31/18 22:00 03/31/18 22:00 Cardiovascular: Yes: Regular Rate, Rhythm Respiratory: Yes: Normal Breath Sounds Capillary Refill: Normal (Less than 2 sec) Pulses: Normal Radial, Normal Dorsalis Pedis, Normal Posterior Tibialis Skin: Warm <Lee Rondon - Last Filed: 04/01/18 07:00> Sepsis Progress Note - Non Invasive Reassessment Vital Sign (Latest): Temp Pulse Resp BP Pulse Ox 98.3 F 43 L 20 122/68 99 03/31/18 22:00 03/31/18 22:00 03/31/18 22:00 03/31/18 22:00 03/31/18 22:00 Attending/Attestation - Attestation I have personally seen and examined this patient.: No I have fully participated in the care of the patient.: Yes I have reviewed all pertinent clinical information, including history, physical exam and plan: Yes
[2018-04-01 02:15] LABS: URINE BILIRUBIN NEGATIVE (NEGATIVE); URINE BLOOD NEGATIVE (NEGATIVE); URINE GLUCOSE (UA) NEGATIVE (NEGATIVE); URINE LEUKOCYTE ESTERASE NEGATIVE Leu/uL (NEGATIVE); URINE PROTEIN NEGATIVE mg/dL (<30 mg/dL); URINE UROBILINOGEN 0.2 E.U./dL (<1 E.U./dL)
[2018-04-01 02:16] LABS: URINE APPEARANCE CLEAR (CLEAR); URINE COLOR YELLOW (YELLOW)
[2018-04-01] MEDS: metroNIDAZOLE IV 500 mg/100 ml 500 MG/100 ML BAG IVPB SCH (05:48)
[2018-04-01 07:17] LABS: BASO # 0.03 K/mm3 (0.0-2.0); BASO % 0.5 % (0.0-3.0); EOS % 0.7 % (1.5-5.0); GRAN # 3.3 (1.4-6.5); GRAN % 58.3 % (50.0-68.0); HEMOGLOBIN 12.7 g/dL (12.0-16.0); LYMPH # 1.8 (1.2-3.4); LYMPH % 32.2 % (22.0-35.0); MEAN CELL VOLUME 88.4 fl (80.0-105.0); MEAN CORPUSCULAR HEMOGLOBIN 31.4 pg (25.0-35.0); MEAN CORPUSCULAR HGB CONC 35.6 g/dl (31.0-37.0); MEAN PLATELET VOLUME 10.6 fl (7.0-11.0); MONO # 0.5 (0.1-0.6); MONO % 8.3 % (1.0-6.0); RBC 4.04 10^6/uL (3.5-6.1); RED CELL DISTRIBUTION WIDTH 12.7 % (11.5-14.5); WHITE BLOOD COUNT 5.7 10^3/ul (4.5-11.0)
[2018-04-01 07:27] LABS: ALB/GLOB RATIO 1.3 (1.1-1.8); ALBUMIN 3.8 g/dL (3.0-4.8); ALT/SGPT 73 U/L (7-56); AST/SGOT 51 U/L (14-36); BLOOD UREA NITROGEN 7 mg/dL (7-21); CALCIUM 8.9 mg/dL (8.4-10.5); GFR AFRICAN-AMERICAN > 60; GFR NON-AFRICAN AMERICAN > 60
[2018-04-01 08:33] VITALS: BP 141/90; PULSE 51; TEMP 98.4
--- NOTE | 2018-04-01 08:55 | RAD ---
HISTORY: id source of infection COMPARISON: 12/19/2013 TECHNIQUE: Chest PA and lateral FINDINGS: LUNGS: No active pulmonary disease. PLEURA: No significant pleural effusion identified. No pneumothorax apparent. CARDIOVASCULAR: Normal. OSSEOUS STRUCTURES: No significant abnormalities. VISUALIZED UPPER ABDOMEN: Normal. OTHER FINDINGS: None. IMPRESSION: No active disease.
--- NOTE | 2018-04-01 14:06 | CP.PCM.DIS ---
<TruongLynda - Last Filed: 04/01/18 16:48> Provider - Provider Date of Admission: 03/29/18 08:37 Attending physician: Jakob Guerrero MD Primary care physician: Cherelle Bonilla MD Consults: GI: Dr Ingram Time Spent in preparation of Discharge (in minutes): 30 Diagnosis - Discharge Diagnosis (1) Anxiety Status: Chronic (2) Gastroenteritis Status: Acute (3) Sepsis Status: Acute Hospital Course - Lab Results Lab Results: Micro Results 03/30/18 11:40 Stool Stool Culture - Final NO SALMONELLA, SHIGELLA OR CAMPYLOBACTER ISOLATED. 03/30/18 11:40 Stool C. difficile Antigen & Toxin A,B (M - Final Most Recent Lab Values WBC 5.7 10^3/ul (4.5-11.0) 04/01/18 06:45 RBC 4.04 10^6/uL (3.5-6.1) 04/01/18 06:45 Hgb 12.7 g/dL (12.0-16.0) 04/01/18 06:45 Hct 35.7 % (36.0-48.0) L 04/01/18 06:45 MCV 88.4 fl (80.0-105.0) 04/01/18 06:45 MCH 31.4 pg (25.0-35.0) 04/01/18 06:45 MCHC 35.6 g/dl (31.0-37.0) 04/01/18 06:45 RDW 12.7 % (11.5-14.5) 04/01/18 06:45 Plt Count 153 10^3/uL (120.0-450.0) 04/01/18 06:45 MPV 10.6 fl (7.0-11.0) 04/01/18 06:45 Gran % 58.3 % (50.0-68.0) 04/01/18 06:45 Lymph % (Auto) 32.2 % (22.0-35.0) 04/01/18 06:45 [place] % (Auto) 8.3 % (1.0-6.0) H 04/01/18 06:45 Eos % (Auto) 0.7 % (1.5-5.0) L 04/01/18 06:45 Baso % (Auto) 0.5 % (0.0-3.0) 04/01/18 06:45 Gran # 3.30 (1.4-6.5) 04/01/18 06:45 Lymph # (Auto) 1.8 (1.2-3.4) 04/01/18 06:45 [place] # (Auto) 0.5 (0.1-0.6) 04/01/18 06:45 Eos # (Auto) 0.0 (0.0-0.7) 04/01/18 06:45 Baso # (Auto) 0.03 K/mm3 (0.0-2.0) 04/01/18 06:45 PT 11.1 SECONDS (9.4-12.5) 03/29/18 04:30 INR 0.97 (0.93-1.08) 03/29/18 04:30 APTT 28.2 Seconds (25.1-36.5) 03/29/18 04:30 pO2 25 mm/Hg (30-55) L 03/31/18 19:47 VBG pH 7.39 (7.32-7.43) 03/31/18 19:47 VBG pCO2 43.0 (40-60) 03/31/18 19:47 VBG HCO3 26.0 mmol/l (21-28) 03/31/18 19:47 VBG Total CO2 27.3 mmol.L (22-28) 03/31/18 19:47 VBG O2 Sat (Calc) 40.8 % (40-65) 03/31/18 19:47 VBG Base Excess 0.8 mmol/L (0.0-2.0) 03/31/18 19:47 VBG Potassium 4.5 mmol/L (3.6-5.2) 03/31/18 19:47 Sodium 144.0 mmol/L (132-148) 03/31/18 19:47 Chloride 116.0 mmol/L (98-107) H 03/31/18 19:47 Glucose 124 mg/dl (65-105) H 03/31/18 19:47 Lactate 1.4 mmol/L (0.7-2.1) 03/31/18 19:47 FiO2 21.0 % 03/31/18 19:47 Sodium 147 mmol/L (132-148) 04/01/18 06:45 Potassium 3.5 mmol/L (3.6-5.0) L 04/01/18 06:45 Chloride 114 mmol/L (98-107) H 04/01/18 06:45 Carbon Dioxide 23 mmol/L (21-33) 04/01/18 06:45 Anion Gap 14 (10-20) 04/01/18 06:45 BUN 7 mg/dL (7-21) 04/01/18 06:45 Creatinine 0.7 mg/dl (0.7-1.2) 04/01/18 06:45 Est GFR ( Amer) > 60 04/01/18 06:45 Est GFR (Non-Af Amer) > 60 04/01/18 06:45 POC Glucose (mg/dL) 86 mg/dL (65-110) 03/31/18 15:37 Random Glucose 109 mg/dL (70-110) 04/01/18 06:45 Calcium 8.9 mg/dL (8.4-10.5) 04/01/18 06:45 Total Bilirubin 0.4 mg/dL (0.2-1.3) 04/01/18 06:45 AST 51 U/L (14-36) H 04/01/18 06:45 ALT 73 U/L (7-56) H 04/01/18 06:45 Alkaline Phosphatase 47 U/L (38-126) 04/01/18 06:45 Lactate Dehydrogenase 431 U/L (333-699) 03/29/18 04:30 Total Creatine Kinase 24 U/L (35-230) L 03/29/18 04:30 Troponin I < 0.01 ng/mL 03/29/18 04:30 Total Protein 6.7 g/dL (5.8-8.3) 04/01/18 06:45 Albumin 3.8 g/dL (3.0-4.8) 04/01/18 06:45 Globulin 2.8 gm/dL 04/01/18 06:45 Albumin/Globulin Ratio 1.3 (1.1-1.8) 04/01/18 06:45 Amylase 76 U/L (35-125) 03/29/18 04:30 Lipase 94 U/L (23-300) 03/29/18 04:30 Procalcitonin < 0.05 NG/ML (0.19-0.49) L 03/31/18 14:30 Venous Blood Potassium 4.5 mmol/L (3.6-5.2) 03/31/18 19:47 Urine Color Yellow (YELLOW) 03/31/18 22:00 Urine Appearance Clear (CLEAR) 03/31/18 22:00 Urine pH 6.0 (4.7-8.0) 03/31/18 22:00 Ur Specific [place] 1.010 (1.005-1.035) 03/31/18 22:00 Urine Protein Negative mg/dL (<30 mg/dL) 03/31/18 22:00 Urine Glucose (UA) Negative mg/dL (NEGATIVE) 03/31/18 22:00 Urine Ketones Negative mg/dL (NEGATIVE) 03/31/18 22:00 Urine Blood Negative (NEGATIVE) 03/31/18 22:00 Urine Nitrate Negative (NEGATIVE) 03/31/18 22:00 Urine Bilirubin Negative (NEGATIVE) 03/31/18 22:00 Urine Urobilinogen 0.2 E.U./dL (<1 E.U./dL) 03/31/18 22:00 Ur Leukocyte Esterase Negative Carlito/uL (NEGATIVE) 03/31/18 22:00 Urine Opiates Screen Positive (NEGATIVE) H 03/30/18 08:50 Urine Methadone Screen Negative (NEGATIVE) 03/30/18 08:50 Ur Barbiturates Screen Negative (NEGATIVE) 03/30/18 08:50 Ur Phencyclidine Scrn Negative (NEGATIVE) 03/30/18 08:50 Ur Amphetamines Screen Negative (NEGATIVE) 03/30/18 08:50 U Benzodiazepines Scrn Negative (NEGATIVE) 03/30/18 08:50 U Oth Cocaine Metabols Negative (NEGATIVE) 03/30/18 08:50 U Cannabinoids Screen Negative (NEGATIVE) 03/30/18 08:50 - Hospital Course Hospital Course: Anh Khoury, 53F, with smoker with former methadone use, PMHx uterine fibroids with menorrhagia requiring blood transfusion, chronic pain/sciatic/ fibromyalgia on chronic oxycodone, and anxiety on klonopin TID, came in for abdominal pain, nausea, vomiting, diarrhea x 1 week. Patient states she is unable to tolerate PO secondary to symptoms. She had diarrhea about 3 times a day, non-bloody, watery. She gets oxycodone and klonopin but her neurologist, Dr Willy Wilder, no longer prescibed her the meds. She used up her oxycodone and Klonopin 1 week ago and her symptoms started. I called Dr. Wilder office, was informed that she is no longer Dr. Wilder patients, and Dr Wilder will not practice pain management since February 07. She denies sick contact, travel, change in diet. She endorsed that she was a pt of Dr Ingram and her EGD and colonoscopy was normal (> 5 years ago). On admission, CT A/P showed mild sigmoid colitis with diverticulosis. EK NSR [address]/TW changed. VS stable, CBC, CMP normal, except for mildly elevated AST at 48. Pt tolerated cefoxitin in ED. U/A negative. dysuria likely from decrease volume from nausea/vomiting. She was admitted for colitits requiring IV ceftriazone and flagyl. Her abdominal pain was controlled by toradol. She tolerated PO diet the first night, but second day , she had 3-4 episodes of N/V/D and she was made NPO and advance as tolerated. She also had a temperature of 101.2. Re-conducted septic work up. lactate 2.2. No leukocytosis. CXR negative. All blood cx negative thus far. Today, her nausea /vomiting/diarrhea improves. She is able to tolerate food for a longer time. She requested clonazepam TID standing. We give her BID PRN with AMbien for sleep. Pt wants to sign out AMA. SHe endorsed that she will have an appointment with Dr. Pal tomorrow. Pt is to follow up with Dr Ingram for outpatient colonoscopy. She was given a course of antibiotics and zofran PRN. Pt is AAOx3, steady gait. IV out. she left AMA. Discharge Exam - Head Exam Head Exam: ATRAUMATIC, NORMAL INSPECTION, NORMOCEPHALIC - Eye Exam Eye Exam: EOMI, Normal appearance, PERRL Pupil Exam: NORMAL ACCOMODATION - ENT Exam ENT Exam: Mucous Membranes Moist - Neck Exam Additional comments: supple, no jvd - Respiratory Exam Respiratory Exam: NORMAL BREATHING PATTERN. absent: Rales, Rhonchi, Wheezes - Cardiovascular Exam Cardiovascular Exam: REGULAR RHYTHM, +S1, +S2 - GI/Abdominal Exam GI & Abdominal Exam: Diminished Bowel Sounds, Soft, Tenderness (mild diffuse). absent: Distended, Firm, Rigid - Extremities Exam Extremities exam: normal capillary refill, pedal pulses present - Neurological Exam Neurological exam: Alert, Normal Gait, Oriented x3 - Psychiatric Exam Psychiatric exam: Normal Affect, Normal Mood - Skin Skin Exam: Dry, Warm Discharge Plan - Discharge Medications Prescriptions: Cefpodoxime [Vantin] 200 mg PO BID 14 Days tab Metronidazole [Flagyl] 500 mg PO TID 14 Days tablet Ondansetron [Zofran] 4 mg PO Q8H #12 tab - Follow Up Plan Condition: GUARDED Disposition: AGAINST MEDICAL ADVICE Referrals: Cherelle Bonilla MD [Primary Care Provider] - <Jakob Guerrero - Last Filed: 04/01/18 16:57> Provider - Provider Date of Admission: 03/29/18 08:37 Attending physician: Jakob Guerrero MD Primary care physician: Cherelle Bonilla MD Hospital Course - Lab Results Lab Results: Micro Results 03/31/18 14:30 Blood-Venous Blood Culture - Preliminary NO GROWTH AFTER 24 HOURS 03/31/18 14:15 Blood-Venous Blood Culture - Preliminary NO GROWTH AFTER 24 HOURS 03/30/18 11:40 Stool Stool Culture - Final NO SALMONELLA, SHIGELLA OR CAMPYLOBACTER ISOLATED. 03/30/18 11:40 Stool C. difficile Antigen & Toxin A,B (M - Final Most Recent Lab Values WBC 5.7 10^3/ul (4.5-11.0) 04/01/18 06:45 RBC 4.04 10^6/uL (3.5-6.1) 04/01/18 06:45 Hgb 12.7 g/dL (12.0-16.0) 04/01/18 06:45 Hct 35.7 % (36.0-48.0) L 04/01/18 06:45 MCV 88.4 fl (80.0-105.0) 04/01/18 06:45 MCH 31.4 pg (25.0-35.0) 04/01/18 06:45 MCHC 35.6 g/dl (31.0-37.0) 04/01/18 06:45 RDW 12.7 % (11.5-14.5) 04/01/18 06:45 Plt Count 153 10^3/uL (120.0-450.0) 04/01/18 06:45 MPV 10.6 fl (7.0-11.0) 04/01/18 06:45 Gran % 58.3 % (50.0-68.0) 04/01/18 06:45 Lymph % (Auto) 32.2 % (22.0-35.0) 04/01/18 06:45 [place] % (Auto) 8.3 % (1.0-6.0) H 04/01/18 06:45 Eos % (Auto) 0.7 % (1.5-5.0) L 04/01/18 06:45 Baso % (Auto) 0.5 % (0.0-3.0) 04/01/18 06:45 Gran # 3.30 (1.4-6.5) 04/01/18 06:45 Lymph # (Auto) 1.8 (1.2-3.4) 04/01/18 06:45 [place] # (Auto) 0.5 (0.1-0.6) 04/01/18 06:45 Eos # (Auto) 0.0 (0.0-0.7) 04/01/18 06:45 Baso # (Auto) 0.03 K/mm3 (0.0-2.0) 04/01/18 06:45 PT 11.1 SECONDS (9.4-12.5) 03/29/18 04:30 INR 0.97 (0.93-1.08) 03/29/18 04:30 APTT 28.2 Seconds (25.1-36.5) 03/29/18 04:30 pO2 25 mm/Hg (30-55) L 03/31/18 19:47 VBG pH 7.39 (7.32-7.43) 03/31/18 19:47 VBG pCO2 43.0 (40-60) 03/31/18 19:47 VBG HCO3 26.0 mmol/l (21-28) 03/31/18 19:47 VBG Total CO2 27.3 mmol.L (22-28) 03/31/18 19:47 VBG O2 Sat (Calc) 40.8 % (40-65) 03/31/18 19:47 VBG Base Excess 0.8 mmol/L (0.0-2.0) 03/31/18 19:47 VBG Potassium 4.5 mmol/L (3.6-5.2) 03/31/18 19:47 Sodium 144.0 mmol/L (132-148) 03/31/18 19:47 Chloride 116.0 mmol/L (98-107) H 03/31/18 19:47 Glucose 124 mg/dl (65-105) H 03/31/18 19:47 Lactate 1.4 mmol/L (0.7-2.1) 03/31/18 19:47 FiO2 21.0 % 03/31/18 19:47 Sodium 147 mmol/L (132-148) 04/01/18 06:45 Potassium 3.5 mmol/L (3.6-5.0) L 04/01/18 06:45 Chloride 114 mmol/L (98-107) H 04/01/18 06:45 Carbon Dioxide 23 mmol/L (21-33) 04/01/18 06:45 Anion Gap 14 (10-20) 04/01/18 06:45 BUN 7 mg/dL (7-21) 04/01/18 06:45 Creatinine 0.7 mg/dl (0.7-1.2) 04/01/18 06:45 Est GFR ( Amer) > 60 04/01/18 06:45 Est GFR (Non-Af Amer) > 60 04/01/18 06:45 POC Glucose (mg/dL) 86 mg/dL (65-110) 03/31/18 15:37 Random Glucose 109 mg/dL (70-110) 04/01/18 06:45 Calcium 8.9 mg/dL (8.4-10.5) 04/01/18 06:45 Total Bilirubin 0.4 mg/dL (0.2-1.3) 04/01/18 06:45 AST 51 U/L (14-36) H 04/01/18 06:45 ALT 73 U/L (7-56) H 04/01/18 06:45 Alkaline Phosphatase 47 U/L (38-126) 04/01/18 06:45 Lactate Dehydrogenase 431 U/L (333-699) 03/29/18 04:30 Total Creatine Kinase 24 U/L (35-230) L 03/29/18 04:30 Troponin I < 0.01 ng/mL 03/29/18 04:30 Total Protein 6.7 g/dL (5.8-8.3) 04/01/18 06:45 Albumin 3.8 g/dL (3.0-4.8) 04/01/18 06:45 Globulin 2.8 gm/dL 04/01/18 06:45 Albumin/Globulin Ratio 1.3 (1.1-1.8) 04/01/18 06:45 Amylase 76 U/L (35-125) 03/29/18 04:30 Lipase 94 U/L (23-300) 03/29/18 04:30 Procalcitonin < 0.05 NG/ML (0.19-0.49) L 03/31/18 14:30 Venous Blood Potassium 4.5 mmol/L (3.6-5.2) 03/31/18 19:47 Urine Color Yellow (YELLOW) 03/31/18 22:00 Urine Appearance Clear (CLEAR) 03/31/18 22:00 Urine pH 6.0 (4.7-8.0) 03/31/18 22:00 Ur Specific [place] 1.010 (1.005-1.035) 03/31/18 22:00 Urine Protein Negative mg/dL (<30 mg/dL) 03/31/18 22:00 Urine Glucose (UA) Negative mg/dL (NEGATIVE) 03/31/18 22:00 Urine Ketones Negative mg/dL (NEGATIVE) 03/31/18 22:00 Urine Blood Negative (NEGATIVE) 03/31/18 22:00 Urine Nitrate Negative (NEGATIVE) 03/31/18 22:00 Urine Bilirubin Negative (NEGATIVE) 03/31/18 22:00 Urine Urobilinogen 0.2 E.U./dL (<1 E.U./dL) 03/31/18 22:00 Ur Leukocyte Esterase Negative Carlito/uL (NEGATIVE) 03/31/18 22:00 Urine Opiates Screen Positive (NEGATIVE) H 03/30/18 08:50 Urine Methadone Screen Negative (NEGATIVE) 03/30/18 08:50 Ur Barbiturates Screen Negative (NEGATIVE) 03/30/18 08:50 Ur Phencyclidine Scrn Negative (NEGATIVE) 03/30/18 08:50 Ur Amphetamines Screen Negative (NEGATIVE) 03/30/18 08:50 U Benzodiazepines Scrn Negative (NEGATIVE) 03/30/18 08:50 U Oth Cocaine Metabols Negative (NEGATIVE) 03/30/18 08:50 U Cannabinoids Screen Negative (NEGATIVE) 03/30/18 08:50 Discharge Plan - Follow Up Plan Patient education suggested?: Yes Attending/Attestation - Attestation I have personally seen and examined this patient.: Yes I have fully participated in the care of the patient.: Yes I have reviewed all pertinent clinical information, including history, physical exam and plan: Yes Notes (Text): 04/01/18 16:56 Patient signed out AMA prior to rounds.
== END 2018-04-01 10:39 | disposition left against medical advice (07) | DRG 813 ==
LOC: ED 03:48 → ERH 08:37 → 5RSO 10:47
PROVIDERS: ADMIT Internal Medicine; ATTEND Internal Medicine
DX: K52.9 Noninfective gastroenteritis and colitis, unspecified (principal); F11.23 Opioid dependence with withdrawal; K57.30 Diverticulosis of large intestine without perforation or abscess without bleeding; F41.9 Anxiety disorder, unspecified; F17.210 Nicotine dependence, cigarettes, uncomplicated; M79.7 Fibromyalgia; G89.29 Other chronic pain; N92.0 Excessive and frequent menstruation with regular cycle; D25.9 Leiomyoma of uterus, unspecified; F32.9 Major depressive disorder, single episode, unspecified; D64.9 Anemia, unspecified; Z88.0 Allergy status to penicillin

== ENCOUNTER 2018-04-02 10:34 | Emergency (ER) | payer OTHER ==
[2018-04-02 10:47] VITALS: RESP 18; TEMP 98.8
[2018-04-02] MEDS ORDERED: Sodium Chloride 0.9% 1,000 ML IV STA (11:13)
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
[2018-04-02 11:59] LABS: BASO # 0.03 K/mm3 (0.0-2.0); BASO % 0.6 % (0.0-3.0); EOS # 0.2 (0.0-0.7); EOS % 3.7 % (1.5-5.0); GRAN # 2.56 (1.4-6.5); GRAN % 49.6 % (50.0-68.0); HEMOGLOBIN 12.6 g/dL (12.0-16.0); LYMPH % 37.9 % (22.0-35.0); MEAN CELL VOLUME 88.9 fl (80.0-105.0); MEAN CORPUSCULAR HEMOGLOBIN 31.9 pg (25.0-35.0); MEAN CORPUSCULAR HGB CONC 35.9 g/dl (31.0-37.0); MEAN PLATELET VOLUME 10.6 fl (7.0-11.0); MONO # 0.4 (0.1-0.6); MONO % 8.2 % (1.0-6.0); RBC 3.95 10^6/uL (3.5-6.1); RED CELL DISTRIBUTION WIDTH 12.5 % (11.5-14.5); WHITE BLOOD COUNT 5.2 10^3/ul (4.5-11.0)
[2018-04-02 12:04] LABS: VENOUS BLOOD GAS BASE EXCESS 0.1 mmol/L (0.0-2.0); VENOUS BLOOD GAS PO2 52 mm/Hg (30-55); VENOUS BLOOD PH 7.28 (7.32-7.43)
[2018-04-02 12:17] LABS: CALCIUM 8.7 mg/dL (8.4-10.5)
[2018-04-02 12:23] LABS: BLOOD UREA NITROGEN 9 mg/dL (7-21); GFR AFRICAN-AMERICAN > 60; GFR NON-AFRICAN AMERICAN > 60
[2018-04-02 12:24] LABS: ALB/GLOB RATIO 1.4 (1.1-1.8); ALBUMIN 3.4 g/dL (3.0-4.8); ALT/SGPT 60 U/L (7-56); AST/SGOT 37 U/L (14-36); LIPASE 137 U/L (23-300)
--- NOTE | 2018-04-02 12:24 | RAD ---
HISTORY: nausea and vomiting COMPARISON: 03/31/2018 FINDINGS: LUNGS: No active pulmonary disease. PLEURA: No significant pleural effusion identified, no pneumothorax apparent. CARDIOVASCULAR: Normal. OSSEOUS STRUCTURES: No significant abnormalities. VISUALIZED UPPER ABDOMEN: Normal. OTHER FINDINGS: None. IMPRESSION: No active disease.
[2018-04-02 13:31] LABS: URINE BILIRUBIN NEGATIVE (NEGATIVE); URINE BLOOD NEGATIVE (NEGATIVE); URINE GLUCOSE (UA) NEGATIVE (NEGATIVE); URINE LEUKOCYTE ESTERASE TRACE Leu/uL (NEGATIVE); URINE PROTEIN TRACE mg/dL (<30 mg/dL); URINE UROBILINOGEN 0.2 E.U./dL (<1 E.U./dL)
[2018-04-02 13:34] LABS: URINE COLOR YELLOW (YELLOW)
[2018-04-02 13:56] LABS: URINE APPEARANCE SL CLOUDY (CLEAR); URINE EPITHELIAL CELLS MANY /hpf (0-5); URINE RBC NEGATIVE /hpf (0-2)
[2018-04-02 13:57] LABS: URINE BACTERIA FEW (NEG)
[2018-04-02 14:14] VITALS: BP 105/55; PULSE 58
[2018-04-02 14:28] VITALS: O2SAT 100
== END 2018-04-02 14:30 | disposition home or self-care (01) ==
LOC: ED 10:34
DX: R11.2 Nausea with vomiting, unspecified (principal)
CPT/HCPCS: 71045; 80053; 81001; 82803; 83690; 85025; 87086; 87181; 96361; 96374; 99284; J2765; J7040

== ENCOUNTER 2018-04-05 21:08 | Inpatient (IN) | payer OTHER ==
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
[2018-04-05] MEDS ORDERED: Linezolid 600 mg in D5W 300 ml 600 MG/300 ML BAG IVPB STA (22:16)
[2018-04-05 22:20] LABS: BASO # 0.01 K/mm3 (0.0-2.0); BASO % 0.2 % (0.0-3.0); EOS # 0.1 (0.0-0.7); GRAN # 2.36 (1.4-6.5); GRAN % 52.7 % (50.0-68.0); HEMOGLOBIN 12.2 g/dL (12.0-16.0); LYMPH # 1.7 (1.2-3.4); LYMPH % 36.8 % (22.0-35.0); MEAN CELL VOLUME 88.9 fl (80.0-105.0); MEAN CORPUSCULAR HEMOGLOBIN 31.4 pg (25.0-35.0); MEAN CORPUSCULAR HGB CONC 35.3 g/dl (31.0-37.0); MEAN PLATELET VOLUME 10.9 fl (7.0-11.0); MONO # 0.4 (0.1-0.6); MONO % 8.3 % (1.0-6.0); RBC 3.89 10^6/uL (3.5-6.1); RED CELL DISTRIBUTION WIDTH 13.1 % (11.5-14.5); WHITE BLOOD COUNT 4.5 10^3/ul (4.5-11.0)
[2018-04-05] MEDS ORDERED: Sodium Chloride 0.9% 1,000 ML IV SCH (22:30)
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
[2018-04-05 22:45] LABS: ALB/GLOB RATIO 1.2 (1.1-1.8); ALBUMIN 3.3 g/dL (3.0-4.8); ALT/SGPT 56 U/L (7-56); AST/SGOT 62 U/L (14-36); BLOOD UREA NITROGEN 7 mg/dL (7-21); CALCIUM 8.4 mg/dL (8.4-10.5); GFR AFRICAN-AMERICAN > 60; GFR NON-AFRICAN AMERICAN > 60
[2018-04-05 23:12] LABS: B-TYPE NATRIURETIC PEPTIDE 1140 pg/mL (0-450)
[2018-04-05 23:13] LABS: TROPONIN I < 0.01 ng/mL
[2018-04-05 23:21] LABS: PH,URINE 6.5 (4.7-8.0); URINE BILIRUBIN NEGATIVE (NEGATIVE); URINE BLOOD NEGATIVE (NEGATIVE); URINE COLOR YELLOW (YELLOW); URINE GLUCOSE (UA) NEGATIVE (NEGATIVE); URINE LEUKOCYTE ESTERASE TRACE Leu/uL (NEGATIVE); URINE PROTEIN NEGATIVE mg/dL (<30 mg/dL); URINE UROBILINOGEN 0.2 E.U./dL (<1 E.U./dL)
[2018-04-05 23:22] LABS: URINE APPEARANCE CLEAR (CLEAR)
[2018-04-05 23:33] LABS: URINE BACTERIA FEW (NEG); URINE RBC 0 - 2 /hpf (0-2)
[2018-04-05 23:48] LABS: VENOUS BLOOD GAS BASE EXCESS 6.3 mmol/L (0.0-2.0); VENOUS BLOOD GAS PO2 86 mm/Hg (30-55); VENOUS BLOOD PH 7.41 (7.32-7.43)
[2018-04-06] MEDS ORDERED: Linezolid 600 mg in D5W 300 ml 600 MG/300 ML BAG IVPB STA (00:15)
[2018-04-06] MEDS ORDERED: Aztreonam 1 Gm in NS 100mL 100 ML IVPB SCH (01:30)
[2018-04-06] MEDS ORDERED: metroNIDAZOLE IV 500 mg/100 ml 500 MG/100 ML BAG IVPB SCH (01:30)
--- NOTE | 2018-04-06 02:22 | CT ---
EXAM: CT Abdomen and Pelvis Without Intravenous Contrast CLINICAL HISTORY: 53 years old, female; Pain; Abdominal pain; Generalized; Additional info: R/O lower abdominal infx (lower abd pain) TECHNIQUE: Axial computed tomography images of the abdomen and pelvis without intravenous contrast. All CT scans at this facility use one or more dose reduction techniques, viz.: automated exposure control; ma/kV adjustment per patient size (including targeted exams where dose is matched to indication; i.e. head); or iterative reconstruction technique. 588 images are submitted. Coronal and sagittal reformatted images were created and reviewed. COMPARISON: CT - ABD PELVIS IV CONTRAST ONLY 2018-03-29 06:28 FINDINGS: Artifacts: Artifact from subadjacent Lung bases: Unremarkable. No mass. No consolidation. ABDOMEN: Liver: Unremarkable. Gallbladder and bile ducts: Cholecystectomy. There is migration of cholecystectomy clip in the right anterior midabdomen. Pancreas: Unremarkable. No ductal dilation. Spleen: Unremarkable. No splenomegaly. Adrenals: Unremarkable. No mass. Kidneys and ureters: Unremarkable. No obstructing stones. No hydronephrosis. Stomach and bowel: Diverticulosis. Large amount of stool in the colon. Correlation with patient's clinical history of constipation is recommended. No mucosal thickening. PELVIS: Appendix: Normal appendix. Bladder: Bladder distention. Correlation with patient's voiding status is recommended. Reproductive: Uterus is seen. ABDOMEN and PELVIS: Intraperitoneal space: Small amount of free pelvic fluid. No free air. Bones/joints: No acute fracture. No dislocation. Soft tissues: Unremarkable. Vasculature: Pelvic phleboliths. No abdominal aortic aneurysm. Lymph nodes: Unremarkable. No enlarged lymph nodes. Tubes, lines and devices: Monitoring device. IMPRESSION: 1. Small amount of free pelvic fluid.
[2018-04-06] MEDS ORDERED: Morphine 2 mg/2 mL syringe IVP STA (06:17)
[2018-04-06 07:00] LABS: BASO # 0.01 K/mm3 (0.0-2.0); BASO % 0.3 % (0.0-3.0); EOS # 0.1 (0.0-0.7); GRAN # 2.73 (1.4-6.5); GRAN % 68.1 % (50.0-68.0); HEMOGLOBIN 12.4 g/dL (12.0-16.0); LYMPH % 23.8 % (22.0-35.0); MEAN CELL VOLUME 88.6 fl (80.0-105.0); MEAN CORPUSCULAR HEMOGLOBIN 30.8 pg (25.0-35.0); MEAN CORPUSCULAR HGB CONC 34.8 g/dl (31.0-37.0); MEAN PLATELET VOLUME 10.5 fl (7.0-11.0); MONO # 0.2 (0.1-0.6); MONO % 5.8 % (1.0-6.0); RBC 4.02 10^6/uL (3.5-6.1); RED CELL DISTRIBUTION WIDTH 13.1 % (11.5-14.5)
[2018-04-06 07:18] LABS: TROPONIN I < 0.01 ng/mL
[2018-04-06 07:26] LABS: ALB/GLOB RATIO 1.3 (1.1-1.8); ALBUMIN 3.3 g/dL (3.0-4.8); ALT/SGPT 59 U/L (7-56); AST/SGOT 56 U/L (14-36); BLOOD UREA NITROGEN 6 mg/dL (7-21); CALCIUM 8.6 mg/dL (8.4-10.5); GFR AFRICAN-AMERICAN > 60; GFR NON-AFRICAN AMERICAN > 60
--- NOTE | 2018-04-06 07:59 | RAD ---
HISTORY: infection COMPARISON: 04/02/2018 FINDINGS: LUNGS: No active pulmonary disease. PLEURA: No significant pleural effusion identified, no pneumothorax apparent. CARDIOVASCULAR: Normal. OSSEOUS STRUCTURES: No significant abnormalities. VISUALIZED UPPER ABDOMEN: Normal. OTHER FINDINGS: None. IMPRESSION: No active disease.
[2018-04-06] MEDS: Sodium Chloride 0.9% 1,000 ML IV SCH ×2 (08:45→23:17)
[2018-04-06] MEDS ORDERED: Linezolid 600 mg in D5W 300 ml 600 MG/300 ML BAG IVPB SCH (10:00)
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
--- NOTE | 2018-04-06 12:20 | CP.PCM.PN ---
Subjective - Date & Time of Evaluation Date of Evaluation: 04/06/18 Time of Evaluation: 06:00 - Subjective Subjective: Patient seen and evaluated bedside. No acute issues overnight. Patient complaining of burning urine and vaginal discharge. She also complains of mild suprapubic/ abdominal pain. Patient denies chest pain, SOB, fever, chills, nausea, vomiting, or any other complaints at this time. Objective - Vital Signs/Intake and Output Vital Signs (last 24 hours): Temp Pulse Resp BP Pulse Ox 99 F 43 L 16 111/63 96 04/06/18 12:16 04/06/18 12:16 04/06/18 12:12 04/06/18 12:16 04/06/18 12:16 - Medications Medications: Current Medications Acetaminophen (Tylenol 325mg Tab) 650 mg PO Q4 PRN PRN Reason: Fever >100.4 F Clonazepam (Klonopin) 0.5 mg PO TID YUMIKO PRN Reason: Protocol Last Admin: 04/06/18 09:34 Dose: 0.5 mg Hydralazine HCl (Apresoline) 10 mg IVP Q6H PRN PRN Reason: Systolic Blood Pressure Sodium Chloride (Sodium Chloride 0.9%) 1,000 mls @ 75 mls/hr IV .[id number] [facility] Last Admin: 04/06/18 08:45 Dose: 75 mls/hr Nicotine (Nicoderm Cq) 1 patch TD DAILY [facility] Last Admin: 04/06/18 12:09 Dose: 1 patch Ondansetron HCl (Zofran Inj) 4 mg IVP Q6H PRN PRN Reason: Nausea/Vomiting Last Admin: 04/06/18 06:26 Dose: 4 mg - Labs Labs: 04/06/18 06:50 04/06/18 06:50 - Constitutional Appears: Non-toxic, No Acute Distress - Head Exam Head Exam: ATRAUMATIC, NORMAL INSPECTION, NORMOCEPHALIC - Eye Exam Eye Exam: EOMI, Normal appearance - ENT Exam ENT Exam: Mucous Membranes Moist - Respiratory Exam Respiratory Exam: Clear to Ausculation Bilateral, NORMAL BREATHING PATTERN - Cardiovascular Exam Cardiovascular Exam: REGULAR RHYTHM, +S1, +S2 - GI/Abdominal Exam GI & Abdominal Exam: Soft, Tenderness - Extremities Exam Extremities Exam: absent: Pedal Edema - Neurological Exam Neurological Exam: Alert, Awake, Oriented x3 Assessment and Plan - Assessment and Plan (Free Text) Assessment: 53 year old female with a past medical history of COPD, colitis, UTI, fibromyalgia, anxiety, depression who presents with chills, dysuria, lower abdominal pain with urine culture showing VRE sensitive to Linezolid. Patient was bradycardic additionally now resolved. Plan: 1) UTI, VRE sensitive to Linezolid (CAROLYN of 2) - Linezolid 600 mg q12h - trace leukocyte esterase - ID, Dr. Vuong, consulted - continue fluids - Tylenol 650 q4h for fever and pain - Contact precautions - diflucan one dose for vaginal discharge - CT abdomen pelvis: free pelvic fluid - Surgery consulted, follow recs 2) Sinus bradycardia-resolved - asymptomatic - patient denied chest pain, dyspnea, or weakness. - Cardiology consulted, Dr. Alejo, follow recs - echo pending - Chest X-ray shows no cardiomegaly or venous congestion 3) Anxiety disorder/ benzodiazepine dependence - Klonopin 0.5 mg TID; patient reports taking 1 mg TID; will adjust as appropriate 4) Nicotine dependence - 7 mg patch - smoking cessation counseling 5) DVT/GI prophylaxis/FEN - SCD - Famotidine 40 mg HS - Regular diet
--- NOTE | 2018-04-06 12:30 | CON ---
DATE: 04/06/2018 CARDIOLOGY CONSULT REASON FOR CONSULTATION: Sinus bradycardia. HISTORY OF PRESENT ILLNESS: The patient is a 53-year-old female who is a smoker and drinker, who was recently admitted, but signed against medical advise and was contacted to come back to the hospital because she has VRE in the urine and according to the patient, she was told that she is septic. The patient was noted to be bradycardic in the 50s on the monitor. She denies any dizziness and is unaware of any prior cardiac history. SOCIAL HISTORY: The patient is a smoker and drinker. MEDICATIONS: Current medications, hydralazine 10 mg intravenously every 6 hours p.r.n., clonazepam 0.5 mg t.i.d., nicotine patch, normal saline 75 mL an hour, Zyvox 600 mg intravenously every 12 hours, Zofran 4 mg intravenously every 6 hours. REVIEW OF SYSTEMS: The patient denies any dizziness, palpitation or syncope in the past. The patient is unaware of any history of heart attack in the past. The patient does report dysuria. PHYSICAL EXAMINATION: GENERAL: The patient is a middle-aged female, who does not appear to be in any acute distress. VITAL SIGNS: Blood pressure 178/79, heart rate 48, temperature 98, respirations 18. HEENT: Normocephalic. CHEST: Clear. HEART: S1 and S2 regular. ABDOMEN: Soft. EXTREMITIES: No edema. LABORATORY DATA: Hemoglobin and hematocrit 12.4 and 35.6, white count 4, platelet count 155,000. SMA-7 is within normal limits except BUN and creatinine of 6 and 0.6. Two sets of troponins are negative. ProBNP is 1140. EKG has not been found yet either on the ER or in the [employer] database and it will be ordered. The most recent EKG from 03/29/2018 revealed normal sinus rhythm with nonspecific ST-T wave changes and heart rate of 77. Microbiology lab was urine culture was positive for VRE. Blood culture was negative after 5 days. ASSESSMENT: 1. Vancomycin-resistant Enterococcus urinary tract infection. 2. Uncontrolled hypertension. 3. Mild sinus bradycardia, which is asymptomatic. 4. History of opiate abuse. RECOMMENDATIONS: Continue IV hydralazine p.r.n., continue nicotine patch, continue IV Zyvox. Obtain an echocardiogram. TSH level was done and is within normal limit. Moo Alejo MD
[2018-04-06 12:42] LABS: BARBITURATES, UR NEGATIVE (NEGATIVE); BENZODIAZEPINES, UR NEGATIVE (NEGATIVE); OPIATES, UR POSITIVE (NEGATIVE); PHENCYCLIDINE, UR NEGATIVE (NEGATIVE)
--- NOTE | 2018-04-06 13:43 | CARD ---
APPROVED REPORT EXAM: Two-dimensional and M-mode echocardiogram with Doppler and color Doppler. INDICATION BRADYCARDIA 2D DIMENSIONS Left Atrium (2D)3.4 (1.6-4.0cm)IVSd1.2 (0.7-1.1cm) LVDd4.7 (3.9-5.9cm)PWd0.9 (0.7-1.1cm) LVDs3.4 (2.5-4.0cm)FS (%) 26.9 % LVEF (%)52.4 (>50%) M-Mode DIMENSIONS Aortic Root2.50 (2.2-3.7cm)Aortic Cusp Exc.1.70 (1.5-2.0cm) Aortic Valve AoV Peak Hazjkojx571.0cm/Darren Peak GR.8mmHg Mitral Valve E/A ratio0.0 TDI E/Lateral E'0.0E/Medial E'0.0 Tricuspid Valve TR Peak [id number] [id number] Peak Gr.22mmHg [id number] LEFT VENTRICLE The left ventricle is normal size. There is normal left ventricular wall thickness. The left ventricular function is normal. The left ventricular ejection fraction is within the normal range. There is normal LV segmental wall motion. The left ventricular diastolic function is normal. RIGHT VENTRICLE The right ventricle is normal size. There is normal right ventricular wall thickness. The right ventricular systolic function is normal. ATRIA The left atrium size is normal. The right atrium size is normal. AORTIC VALVE The aortic valve is mildly thickened. No aortic regurgitation is present. There is no aortic valvular stenosis. MITRAL VALVE The mitral valve is mildly thickened. There is no mitral valve regurgitation noted. There is no mitral valve stenosis. TRICUSPID VALVE There is mild tricuspid regurgitation. GREAT VESSELS The aortic root is normal in size. The IVC collapses <50% with inspiration. <Conclusion> The left ventricle is normal size. There is normal left ventricular wall thickness. The left ventricular function is normal. The left ventricular ejection fraction is within the normal range. There is normal LV segmental wall motion. The left ventricular diastolic function is normal. There is mild tricuspid regurgitation.
[2018-04-06] MEDS ORDERED: Pneumococcal 23-Valent Vaccine IM ONE (14:38)
--- NOTE | 2018-04-06 14:47 | CARD ---
APPROVED REPORT EKG Measurement Heart [id number] <Conclusion> Marked sinus bradycardia Cannot rule out Anterior infarct, age undetermined Abnormal ECG
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
[2018-04-06] MEDS: Linezolid 600 mg in D5W 300 ml 600 MG/300 ML BAG IVPB SCH (23:09)
--- NOTE | 2018-04-06 23:17 | CARD ---
APPROVED REPORT EKG Measurement Heart [id number] <Conclusion> Poor data quality, interpretation may be adversely affected Marked sinus bradycardia Abnormal ECG
--- NOTE | 2018-04-06 23:17 | CARD ---
APPROVED REPORT EKG Measurement Heart [id number] <Conclusion> sinus bradycardia Abnormal ECG
[2018-04-07 08:09] LABS: BASO # 0.01 K/mm3 (0.0-2.0); BASO % 0.2 % (0.0-3.0); EOS # 0.1 (0.0-0.7); EOS % 1.8 % (1.5-5.0); GRAN # 2.65 (1.4-6.5); GRAN % 58.5 % (50.0-68.0); HEMOGLOBIN 12.3 g/dL (12.0-16.0); LYMPH # 1.5 (1.2-3.4); LYMPH % 32.7 % (22.0-35.0); MEAN CELL VOLUME 89.4 fl (80.0-105.0); MEAN CORPUSCULAR HEMOGLOBIN 30.9 pg (25.0-35.0); MEAN CORPUSCULAR HGB CONC 34.6 g/dl (31.0-37.0); MEAN PLATELET VOLUME 10.5 fl (7.0-11.0); MONO # 0.3 (0.1-0.6); MONO % 6.8 % (1.0-6.0); RBC 3.98 10^6/uL (3.5-6.1); RED CELL DISTRIBUTION WIDTH 13.1 % (11.5-14.5); WHITE BLOOD COUNT 4.5 10^3/ul (4.5-11.0)
[2018-04-07 08:20] LABS: ALB/GLOB RATIO 1.2 (1.1-1.8); ALBUMIN 3.2 g/dL (3.0-4.8); ALT/SGPT 65 U/L (7-56); AST/SGOT 51 U/L (14-36); BLOOD UREA NITROGEN 9 mg/dL (7-21); CALCIUM 8.4 mg/dL (8.4-10.5); GFR AFRICAN-AMERICAN > 60; GFR NON-AFRICAN AMERICAN > 60
[2018-04-07] MEDS: Linezolid 600 mg in D5W 300 ml 600 MG/300 ML BAG IVPB SCH (09:46)
[2018-04-07] MEDS: Sodium Chloride 0.9% 1,000 ML IV SCH (09:52)
--- NOTE | 2018-04-07 10:17 | CP.PCM.PN ---
Subjective - Date & Time of Evaluation Date of Evaluation: 04/07/18 Time of Evaluation: 07:00 - Subjective Subjective: PGY-1 Surgery progress note for Dr. Tang Patient seen and examined. Patient reports much improvement in suprapubic tenderness. She is mildly nauseous but has not vomited. Tolerating her diet at the moment. Objective - Vital Signs/Intake and Output Vital Signs (last 24 hours): Temp Pulse Resp BP Pulse Ox 98.6 F 56 L 20 129/76 96 04/07/18 06:00 04/07/18 06:00 04/07/18 06:00 04/07/18 06:00 04/07/18 06:00 Intake and Output: 04/07/18 04/07/18 06:59 18:59 Intake Total 300 Balance 300 - Medications Medications: Current Medications Acetaminophen (Tylenol 325mg Tab) 650 mg PO Q4 PRN PRN Reason: Fever >100.4 F Last Admin: 04/06/18 14:22 Dose: 650 mg Clonazepam (Klonopin) 0.5 mg PO TID [facility] PRN Reason: Protocol Last Admin: 04/07/18 09:47 Dose: 0.5 mg Hydralazine HCl (Apresoline) 10 mg IVP Q6H PRN PRN Reason: Systolic Blood Pressure Sodium Chloride (Sodium Chloride 0.9%) 1,000 mls @ 75 mls/hr IV .[id number] [facility] Last Admin: 04/07/18 09:52 Dose: Not Given Linezolid (Zyvox 600mg/300ml D5w) 600 mg in 300 mls @ 200 mls/hr IVPB Q12 [facility] PRN Reason: Protocol Stop: 04/11/18 22:01 Last Admin: 04/07/18 09:46 Dose: 200 mls/hr Nicotine (Nicoderm Cq) 1 patch TD DAILY [facility] Last Admin: 04/07/18 09:46 Dose: 1 patch Ondansetron HCl (Zofran Inj) 4 mg IVP Q6H PRN PRN Reason: Nausea/Vomiting Last Admin: 04/06/18 13:53 Dose: 4 mg - Labs Labs: 04/07/18 07:50 04/07/18 07:50 - Constitutional Appears: No Acute Distress - Head Exam Head Exam: ATRAUMATIC, NORMOCEPHALIC - Eye Exam Eye Exam: EOMI, Normal appearance - ENT Exam ENT Exam: Mucous Membranes Moist - Respiratory Exam Respiratory Exam: NORMAL BREATHING PATTERN. absent: Respiratory Distress - Cardiovascular Exam Cardiovascular Exam: +S1, +S2 - GI/Abdominal Exam GI & Abdominal Exam: Soft, Tenderness (suprapubic). absent: Distended, Guarding - Extremities Exam Extremities Exam: absent: Pedal Edema - Neurological Exam Neurological Exam: Alert, Awake, Oriented x3 - Psychiatric Exam Psychiatric exam: Normal Affect, Normal Mood - Skin Skin Exam: Dry, Warm Additional comments: Two healed incisions from prior laparascopic surgery Assessment and Plan - Assessment and Plan (Free Text) Assessment: This is a 53 year old female with VRE UTI with small amount of free pelvic fluid per CT scan Plan: Fluid likely due to inflammatory changes from the UTI Continue IV antibiotics for VRE UTI Continue to trend LFTs No surgical intervention planned at this time Please re-consult if needed Further recs as per Dr. Clyde Jimenez PGY-1
[2018-04-07 12:11] VITALS: RESP 18
--- NOTE | 2018-04-07 13:20 | PN ---
DATE: 04/07/2018 SUBJECTIVE: The patient denies any dizziness. She complains of weakness. The slowest heart rate was 38 beats per minute. Otherwise, her heart rates are in the 40s and 50s. PHYSICAL EXAMINATION: VITAL SIGNS: Blood pressure 129/76, heart rate 56, temperature 98.6, respiration 20. HEENT: Normocephalic. CHEST: Clear. HEART: S1 and S2, regular. EXTREMITIES: No edema. LABORATORY DATA: Urine drug screen is positive for opiates, but the patient blames that to Percocet that she uses for low back pain. However, Percocet was not mentioned as one of her medications on her presentation to the emergency room. Today's SMA-7 is within normal limits. Today's hemoglobin and hematocrit 12.3 and 35.6, white count and platelet count are within normal limits. Echocardiography study revealed normal left ventricular size, wall thickness and ejection fraction, mild tricuspid insufficiency. ASSESSMENT: 1. Vancomycin-resistant Enterococcus urinary tract infection. 2. Sinus bradycardia. 3. Hypertension. CONDITIONS: Continue IV hydralazine 10 mg every 6 hours p.r.n. Continue Zyvox 600 mg intravenously every 12 hours. Moo Alejo MD
[2018-04-07 15:42] VITALS: BP 128/83; PULSE 47; TEMP 98.3; O2SAT 98
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
--- NOTE | 2018-04-08 06:48 | CP.PCM.DIS ---
Provider - Provider Date of Admission: 04/05/18 23:42 Attending physician: Samson Glaser MD Primary care physician: Cherelle Bonilla MD Consults: Surgery: Clyde Cardio: Melo ID: Go Time Spent in preparation of Discharge (in minutes): 70 Hospital Course - Lab Results Lab Results: Most Recent Lab Values WBC 4.5 10^3/ul (4.5-11.0) 04/07/18 07:50 RBC 3.98 10^6/uL (3.5-6.1) 04/07/18 07:50 Hgb 12.3 g/dL (12.0-16.0) 04/07/18 07:50 Hct 35.6 % (36.0-48.0) L 04/07/18 07:50 MCV 89.4 fl (80.0-105.0) 04/07/18 07:50 MCH 30.9 pg (25.0-35.0) 04/07/18 07:50 MCHC 34.6 g/dl (31.0-37.0) 04/07/18 07:50 RDW 13.1 % (11.5-14.5) 04/07/18 07:50 Plt Count 163 10^3/uL (120.0-450.0) 04/07/18 07:50 MPV 10.5 fl (7.0-11.0) 04/07/18 07:50 Gran % 58.5 % (50.0-68.0) 04/07/18 07:50 Lymph % (Auto) 32.7 % (22.0-35.0) 04/07/18 07:50 Nance % (Auto) 6.8 % (1.0-6.0) H 04/07/18 07:50 Eos % (Auto) 1.8 % (1.5-5.0) 04/07/18 07:50 Baso % (Auto) 0.2 % (0.0-3.0) 04/07/18 07:50 Gran # 2.65 (1.4-6.5) 04/07/18 07:50 Lymph # (Auto) 1.5 (1.2-3.4) 04/07/18 07:50 Nance # (Auto) 0.3 (0.1-0.6) 04/07/18 07:50 Eos # (Auto) 0.1 (0.0-0.7) 04/07/18 07:50 Baso # (Auto) 0.01 K/mm3 (0.0-2.0) 04/07/18 07:50 ESR 4 mm/hr (0.0-20.0) 04/06/18 06:50 pO2 86 mm/Hg (30-55) H 04/05/18 23:30 VBG pH 7.41 (7.32-7.43) 04/05/18 23:30 VBG pCO2 51.0 (40-60) 04/05/18 23:30 VBG HCO3 32.3 mmol/l (21-28) H 04/05/18 23:30 VBG Total CO2 33.9 mmol.L (22-28) H 04/05/18 23:30 VBG O2 Sat (Calc) 98.2 % (40-65) H 04/05/18 23:30 VBG Base Excess 6.3 mmol/L (0.0-2.0) H 04/05/18 23:30 VBG Potassium 3.5 mmol/L (3.6-5.2) L 04/05/18 23:30 Sodium 139.0 mmol/L (132-148) 04/05/18 23:30 Chloride 106.0 mmol/L (98-107) 04/05/18 23:30 Glucose 91 mg/dl (65-105) 04/05/18 23:30 Lactate 0.7 mmol/L (0.7-2.1) 04/05/18 23:30 FiO2 21.0 % 04/05/18 23:30 Sodium 143 mmol/L (132-148) 04/07/18 07:50 Potassium 4.4 mmol/L (3.6-5.0) 04/07/18 07:50 Chloride 107 mmol/L (98-107) 04/07/18 07:50 Carbon Dioxide 29 mmol/L (21-33) 04/07/18 07:50 Anion Gap 12 (10-20) 04/07/18 07:50 BUN 9 mg/dL (7-21) 04/07/18 07:50 Creatinine 0.7 mg/dl (0.7-1.2) 04/07/18 07:50 Est GFR ( Amer) > 60 04/07/18 07:50 Est GFR (Non-Af Amer) > 60 04/07/18 07:50 Random Glucose 97 mg/dL (70-110) 04/07/18 07:50 Calcium 8.4 mg/dL (8.4-10.5) 04/07/18 07:50 Total Bilirubin 0.3 mg/dL (0.2-1.3) 04/07/18 07:50 AST 51 U/L (14-36) H 04/07/18 07:50 ALT 65 U/L (7-56) H 04/07/18 07:50 Alkaline Phosphatase 41 U/L (38-126) 04/07/18 07:50 Lactate Dehydrogenase 838 U/L (333-699) H 04/05/18 22:20 Total Creatine Kinase 41 U/L (35-230) 04/05/18 22:20 Troponin I < 0.01 ng/mL 04/06/18 10:15 C-React Prot High Sens 0.14 mg/L (1.00-3.00) L 04/06/18 06:50 NT-Pro-B Natriuret Pep 1140 pg/mL (0-450) H 04/05/18 22:20 Total Protein 5.9 g/dL (5.8-8.3) 04/07/18 07:50 Albumin 3.2 g/dL (3.0-4.8) 04/07/18 07:50 Globulin 2.6 gm/dL 04/07/18 07:50 Albumin/Globulin Ratio 1.2 (1.1-1.8) 04/07/18 07:50 Lipase 51 U/L (23-300) 04/06/18 10:35 TSH 3rd Generation 0.77 mIU/mL (0.46-4.68) 04/06/18 06:50 Venous Blood Potassium 3.5 mmol/L (3.6-5.2) L 04/05/18 23:30 Urine Color Yellow (YELLOW) 04/05/18 22:35 Urine Appearance Clear (CLEAR) 04/05/18 22:35 Urine pH 6.5 (4.7-8.0) 04/05/18 22:35 Ur Specific [place] 1.015 (1.005-1.035) 04/05/18 22:35 Urine Protein Negative mg/dL (<30 mg/dL) 04/05/18 22:35 Urine Glucose (UA) Negative mg/dL (NEGATIVE) 04/05/18 22:35 Urine Ketones Negative mg/dL (NEGATIVE) 04/05/18 22:35 Urine Blood Negative (NEGATIVE) 04/05/18 22:35 Urine Nitrate Negative (NEGATIVE) 04/05/18 22:35 Urine Bilirubin Negative (NEGATIVE) 04/05/18 22:35 Urine Urobilinogen 0.2 E.U./dL (<1 E.U./dL) 04/05/18 22:35 Ur Leukocyte Esterase Trace Carlito/uL (NEGATIVE) H 04/05/18 22:35 Urine RBC 0 - 2 /hpf (0-2) 04/05/18 22:35 Urine WBC 1 - 3 /hpf (0-6) 04/05/18 22:35 Ur Epithelial Cells 3 - 4 /hpf (0-5) 04/05/18 22:35 Urine Bacteria Few (NEG) 04/05/18 22:35 Urine Opiates Screen Positive (NEGATIVE) H 04/06/18 12:18 Urine Methadone Screen Negative (NEGATIVE) 04/06/18 12:18 Ur Barbiturates Screen Negative (NEGATIVE) 04/06/18 12:18 Ur Phencyclidine Scrn Negative (NEGATIVE) 04/06/18 12:18 Ur Amphetamines Screen Negative (NEGATIVE) 04/06/18 12:18 U Benzodiazepines Scrn Negative (NEGATIVE) 04/06/18 12:18 U Oth Cocaine Metabols Negative (NEGATIVE) 04/06/18 12:18 U Cannabinoids Screen Negative (NEGATIVE) 04/06/18 12:18 - Hospital Course Hospital Course: 53 year old female with a past medical history of COPD, colitis, UTI, fibromyalgia, anxiety, depression who presented with chills, dysuria, lower abdominal pain with urine culture showing VRE sensitive to Linezolid. Patient was bradycardic. For UTI the UA was done she was started on linezolid and ID was consulted. She also had CT abdomen and pelvis done which showed small free pelvic fluid, surgery was consulted and nothing was to be done, it was likely inflammatory reaction and changes. She also had episode of vaginal discharge for which she was given one time dose of fluconazole. Cardiology was consulted for bradycardia, patient did not have any symptoms and echo was done and reviewed. Patients clinical status improved and was discharged home with PO antibiotics to continue. Discharge Exam - Head Exam Head Exam: ATRAUMATIC, NORMOCEPHALIC - Eye Exam Eye Exam: EOMI, Normal appearance, PERRL - Respiratory Exam Respiratory Exam: Clear to PA & Lateral, NORMAL BREATHING PATTERN, UNREMARKABLE - Cardiovascular Exam Cardiovascular Exam: REGULAR RHYTHM, +S1, +S2 - GI/Abdominal Exam GI & Abdominal Exam: Tenderness - Neurological Exam Neurological exam: Alert, Oriented x3 Discharge Plan - Discharge Medications Prescriptions: Linezolid [Zyvox] 600 mg PO DAILY #5 tab - Follow Up Plan Condition: FAIR Disposition: HOME/ ROUTINE Instructions: Urinary Tract Infection, Adult (DC), Bradycardia (DC), Vancomycin -Resistant Enterococci (DC) Additional Instructions: Please take the antibiotic daily for 5 days. Follow up with PMD. Referrals: Cherelle Bonilla MD [Primary Care Provider] -
== END 2018-04-07 20:43 | disposition home or self-care (01) | DRG 320 ==
LOC: ED 21:08 → ERH 23:42 → 2RSO 04-06 12:31 → 5RNO 04-07 15:32
PROVIDERS: ADMIT Internal Medicine; ATTEND Internal Medicine
DX: N39.0 Urinary tract infection, site not specified (principal); J44.9 Chronic obstructive pulmonary disease, unspecified; F13.20 Sedative, hypnotic or anxiolytic dependence, uncomplicated; K52.9 Noninfective gastroenteritis and colitis, unspecified; R00.1 Bradycardia, unspecified; Z16.21 Resistance to vancomycin; B95.2 Enterococcus as the cause of diseases classified elsewhere; F17.210 Nicotine dependence, cigarettes, uncomplicated; I10 Essential (primary) hypertension; K57.32 Diverticulitis of large intestine without perforation or abscess without bleeding; M79.7 Fibromyalgia; F41.9 Anxiety disorder, unspecified; M54.5 Low back pain; F32.9 Major depressive disorder, single episode, unspecified; N89.8 Other specified noninflammatory disorders of vagina; Z88.0 Allergy status to penicillin